=== PATIENT | female | born 1980 | race Caucasian/White ===

== ENCOUNTER 2017-11-21 10:44 | Inpatient (IN) | payer BC, OTHER ==
[~2017-11-21] VITALS: Ht 162.6 cm; Wt 81.0 kg
[2017-11-21 01:00] VITALS: BP 101/66; PULSE 102; TEMP 37.5; O2SAT 95
[2017-11-21] MEDS ORDERED: ONDANSETRON INJ 2 MG/ML 2 ML VIAL IV STA (10:59)
[2017-11-21] MEDS ORDERED: SODIUM CHLORIDE 0.9% 1000ML 1,000 ML IV STA (10:59)
[2017-11-21] MEDS ORDERED: OPTIRAY 320 IV PRN (11:15)
[2017-11-21] MEDS: MoRPHine SULFATE 4 MG/ML 1 ML CARP\\VIAL IV PRN ×3 (11:19→14:30)
[2017-11-21 11:32] LABS: ISTAT CREATININE 0.5 mg/dl (0.6-1.3); ISTAT IONIZED CALCIUM 1.02 mmol/l (1.12-1.32)
[2017-11-21 11:36] LABS: HEMATOCRIT 38.3 % (37-47); HEMOGLOBIN 13.1 g/dL (12.0-16.0); MEAN CELL VOLUME 90.8 fL (80-100); MEAN CORPUSCULAR HGB CONC 34.2 g/dl (32-36); PLATELET COUNT 334 K/uL (130-400); RED CELL DISTRIBUTION WIDTH CV 12.8 % (11.5-14.5); RED CELL DISTRIBUTION WIDTH SD 42.5 fL (36.4-46.3); WHITE BLOOD COUNT 27.21 K/uL (4.8-10.8)
[2017-11-21] MEDS ORDERED: LISD50CA PO (11:44)
[2017-11-21 12:01] LABS: BASO % 0.1 %; BASO ABS # 0.02 K/uL (0-0.2); EOS ABS # 0.01 K/uL (0-0.5); IG# 0.09 K/uL (0.00-0.02); LYMPH % 5.4 %; LYMPH ABS # 1.46 K/uL (1.2-3.4); MONO ABS # 1.36 K/uL (0.11-0.59); NEUT % 89.2 %; NEUT ABS # 24.27 K/uL (1.4-6.5)
[2017-11-21 12:05] LABS: CALCIUM 8.2 mg/dl (8.5-10.1); CREATININE 0.83 mg/dl (0.60-1.20); POTASSIUM 3.2 mmol/L (3.5-5.1); TOTAL PROTEIN 7.7 gm/dl (6.4-8.2)
--- NOTE | 2017-11-21 12:06 | EMERGENCY ROOM VISIT NOTE ---
History Report prepared by Rachael: Janell Shafer Under the Supervision of: Dr. Jaskaran Swanson D.O. First contact with patient: 10:52 Chief Complaint: ABDOMINAL PAIN Stated Complaint: SEVERE ABDOMINAL PAIN, VOMITING, CHILLS, FATIGUE Nursing Triage Summary: pt here with fever, lower abd pain, n./v no bm x 5 days. pt denies vaginal bleeding or urinary sx. History of Present Illness The patient is a 37 year old female who presents to the Emergency Room with complaints of worsening lower abdominal pain starting a few weeks ago. The patient states that she went to Urgent Care yesterday for the abdominal pain and pressure when she urinates. She states that they tested her urine and determined she did not have a UTI. She reports that she has been taking Ibuprofen, but hasn't this morning since she has not been able to keep anything down. She reports that this morning she also developed chills, feeling feverish , body aches, and fatigue. The patient complains of slight back pain and not having a bowel movement for 5 days. The patient denies burning with urination, leg swelling, rashes, hematuria, cloudy urine, vaginal discharge, vaginal bleeding, a history of diverticulitis, a history of an appendectomy, and a history of cholecystectomy. She notes that she is sexually active, but has an IUD. She states that she hasn't had a menstrual cycle in years and denies the chance of being . Source of History: patient Onset: a few weeks ago Position: abdomen (lower) Timing: worsening Modifying Factors (Relieving): ibuprofen Associated Symptoms: + chills, + back pain, + urinary symptoms (pressure when she urinates), + fatigue, No rash Note: The patient complains of feeling feverish, body aches, and not having a bowel movement in 5 days. The patient denies burning with urination, leg swelling, hematuria, cloudy urine, vaginal discharge, and vaginal bleeding. Review of Systems See HPI for pertinent positives & negatives. A total of 10 systems reviewed and were otherwise negative. Family History Patient reports no known family medical history. Social History Smoking Status: Current Every Day Smoker Marital Status: Housing Status: lives with family Occupation Status: employed Current/Historical Medications Scheduled Lisdexamfetamine Dimesylate (Vyvanse), 50 MG PO DAILY Allergies Coded Allergies: No Known Allergies (Unverified , 11/21/17) Physical Exam Vital Signs Date Time Temp Pulse Resp B/P (MAP) Pulse Ox O2 Delivery O2 Flow Rate FiO2 11/21/17 14:00 117 22 124/88 100 Room Air 11/21/17 13:00 120 22 123/86 99 Room Air 11/21/17 12:28 115 11/21/17 11:55 127 23 125/72 97 Room Air 11/21/17 11:26 126 19 136/81 96 Room Air 11/21/17 11:21 96 Room Air 11/21/17 10:48 38.7 134 18 121/86 99 Room Air Physical Exam GENERAL: Patient is awake, alert, and mildly anxious appearing, but comfortable. EYES: The conjunctivae are clear. The pupils are round and reactive. EARS, NOSE, MOUTH AND THROAT: The nose is without any evidence of any deformity. Mucous membranes are moist. Tongue is midline NECK: The neck is nontender and supple. RESPIRATORY: Normal respiratory effort is noted. There is no evidence of wheezing rhonchi or rales to auscultation. CARDIOVASCULAR: Tachycardic, but regular. No definite murmur noted. GASTROINTESTINAL: The abdomen is mildly distended and diffusely tender. Mild guarding in the right lower quadrant and suprapubic region. Bowel sounds are present in all quadrants. BACK: No midline tenderness or or step-off noted range of motion in flexion extension as well as rotation no signs of muscle spasm noted. MUSCULOSKELETAL/EXTREMITIES: There is no evidence of gross deformity. Full range of motion is noted in the hips and shoulders. SKIN: There is no obvious evidence of any rash. There are no petechiae, pallor or cyanosis noted. NEUROLOGIC: Patient is awake alert and oriented x3. Medical Decision & Procedures ER Provider Diagnostic Interpretation: Radiology results as stated below per my review and radiologist interpretation: ABD/PELVIS IV CONTRAST ONLY CLINICAL HISTORY: 37 years-old Female presenting with lower abd pain, fever. TECHNIQUE: Multidetector CT of the abdomen and pelvis was performed after the administration of intravenous contrast. IV contrast: 92 mL of Optiray 320. A dose lowering technique was used consistent with the principles of ALARA (as low as reasonably achievable). COMPARISON: None. CT DOSE (mGy.cm): The estimated cumulative dose is 816.23 mGycm. 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 Lung bases: Minimal basilar opacities, likely atelectasis. Normal heart size. No pericardial or pleural effusion. Liver: Normal morphology. Few subcentimeter hypodensities likely cysts or hamartomas. Patent hepatic vasculature. Biliary: No intrahepatic or extrahepatic biliary ductal dilatation. Normal gallbladder. Pancreas: Normal. Spleen: Normal. Adrenal glands: Normal. Kidneys and ureters: Normal. No hydronephrosis. Bladder: Normal. Pelvic organs: Intrauterine device noted in the neutral cavity. The right ovary is markedly enlarged, heterogeneous, and contains complex rim-enhancing collections. The ovary measures up to 7.8 cm in diameter. The largest intraovarian collection measures 6.3 cm. There is trace surrounding right adnexal fluid. The left ovary is also heterogeneous and prominent though not enlarged. A similar volume of free fluid is noted adjacent to the left ovary. Bowel: Along the anterior aspect of the upper rectum is a 1.1 cm rim-enhancing focus, which most likely represents an intraperitoneal abscess rather than a diverticulum. No potential diverticula noted elsewhere in the colon. Moderate stool burden in the right colon. Hyperdensity within the cecum may represent medication menstruation. The appendix is normal. No bowel obstruction. Peritoneal cavity: Focal 1.1 cm rim-enhancing fluid collection in the pelvis as mentioned above. Free fluid in the adnexa as mentioned above. No free intraperitoneal gas. Lymph nodes: No enlarged lymph nodes in the abdomen or pelvis. Vasculature: Aorta and IVC patent and normal in caliber. Abdominal wall: Normal. Musculoskeletal: Normal. IMPRESSION: 1. Findings consistent with tubo-ovarian abscess most prominently involving the right ovary. Findings also suspicious for a 1.1 cm pelvic abscess. Gynecologic consultation recommended. 2. Intrauterine device in place. The report will be called/faxed according to standard departmental protocol. Electronically signed by: Glenn Cannon M.D. 11/21/2017 1:18 PM Dictated Date/Time: 11/21/2017 1:11 PM Laboratory Results 11/21/17 11:15 Red Blood Count 4.22, Mean Corpuscular Volume 90.8, Mean Corpuscular Hemoglobin 31.0, Mean Corpuscular Hemoglobin Concent 34.2, Mean Platelet Volume 9.0, Neutrophils (%) (Auto) 89.2, Lymphocytes (%) (Auto) 5.4, Monocytes (%) (Auto) 5.0, Eosinophils (%) (Auto) 0.0, Basophils (%) (Auto) 0.1, Neutrophils # (Auto) 24.27, Lymphocytes # (Auto) 1.46, Monocytes # (Auto) 1.36, Eosinophils # (Auto) 0.01, Basophils # (Auto) 0.02 11/21/17 11:15 Test 11/21/17 11:15 11/21/17 11:19 11/21/17 13:50 White Blood Count 27.21 K/uL (4.8-10.8) Red Blood Count 4.22 M/uL (4.2-5.4) Hemoglobin 13.1 g/dL (12.0-16.0) Hematocrit 38.3 % (37-47) Mean Corpuscular Volume 90.8 fL (80-100) Mean Corpuscular Hemoglobin 31.0 pg (25-34) Mean Corpuscular Hemoglobin Concent 34.2 g/dl (32-36) Platelet Count 334 K/uL (130-400) Mean Platelet Volume 9.0 fL (7.4-10.4) Neutrophils (%) (Auto) 89.2 % Lymphocytes (%) (Auto) 5.4 % Monocytes (%) (Auto) 5.0 % Eosinophils (%) (Auto) 0.0 % Basophils (%) (Auto) 0.1 % Neutrophils # (Auto) 24.27 K/uL (1.4-6.5) Lymphocytes # (Auto) 1.46 K/uL (1.2-3.4) Monocytes # (Auto) 1.36 K/uL (0.11-0.59) Eosinophils # (Auto) 0.01 K/uL (0-0.5) Basophils # (Auto) 0.02 K/uL (0-0.2) RDW Standard Deviation 42.5 fL (36.4-46.3) RDW Coefficient of Variation 12.8 % (11.5-14.5) Immature Granulocyte % (Auto) 0.3 % Immature Granulocyte # (Auto) 0.09 K/uL (0.00-0.02) Urine Color ORANGE Urine Appearance CLEAR (CLEAR) Urine pH 5.5 (4.5-7.5) Urine Specific [place] 1.018 (1.000-1.030) Urine Protein 1+ (NEG) Urine Glucose (UA) NEG (NEG) Urine Ketones 2+ (NEG) Urine Occult Blood 1+ (NEG) Urine Nitrite POS (NEG) Urine Bilirubin NEG (NEG) Urine Urobilinogen POS (NEG) Urine Leukocyte Esterase TRACE (NEG) Urine WBC (Auto) 1-5 /hpf (0-5) Urine RBC (Auto) 0-4 /hpf (0-4) Urine Hyaline Casts (Auto) 1-5 /lpf (0-5) Urine Epithelial Cells (Auto) >30 /lpf (0-5) Urine Bacteria (Auto) 4+ (NEG) Est Creatinine Clear Calc Drug Dose 97.4 ml/min Estimated GFR () 105.9 Estimated GFR (Non- 91.4 BUN/Creatinine Ratio 8.6 (10-20) Calcium Level 8.2 mg/dl (8.5-10.1) Magnesium Level 2.1 mg/dl (1.8-2.4) Total Bilirubin 0.9 mg/dl (0.2-1) Direct Bilirubin 0.3 mg/dl (0-0.2) Aspartate Amino Transf (AST/SGOT) 10 U/L (15-37) Alanine Aminotransferase (ALT/SGPT) 18 U/L (12-78) Alkaline Phosphatase 92 U/L (45-117) Total Protein 7.7 gm/dl (6.4-8.2) Albumin 3.0 gm/dl (3.4-5.0) Lipase 52 U/L (73-393) Human Chorionic Gonadotropin, Qual NEG (NEG) Bedside Hemoglobin 12.9 g/dl (12.0-16.0) Bedside Hematocrit 38 % (37-47) Bedside Sodium 136 mEq/L (135-144) Bedside Potassium 3.0 mEq/L (3.3-5.0) Bedside Chloride 100 mEq/L (101-112) Bedside Total CO2 22 mEq/l (24-31) Anion Gap 18.0 mmol/L (16-25) Bedside Blood Urea Nitrogen 7 mg/dl (7-18) Bedside Creatinine 0.5 mg/dl (0.6-1.3) Bedside Glucose (other) 156 mg/dl (70-99) Bedside Ionized Calcium (Tony) 1.02 mmol/l (1.12-1.32) Laboratory results per my review. Medications Administered Medications (Trade) Dose Ordered Sig/Yudy Route Start Time Stop Time Status Last Admin Dose Admin Ondansetron HCl (Zofran Inj) 4 mg NOW STAT IV 11/21/17 10:59 11/21/17 11:01 DC 11/21/17 11:19 4 MG Sodium Chloride 1,000 ml @ 999 mls/hr Q1H1M STAT IV 11/21/17 10:59 11/21/17 11:59 DC 11/21/17 11:18 999 MLS/HR Morphine Sulfate (MoRPHine SULFATE INJ) 4 mg Q15M PRN IV 11/21/17 11:00 11/21/17 18:15 DC 11/21/17 14:30 4 MG Potassium Chloride 100 ml @ 100 mls/hr NOW STAT IV 11/21/17 12:20 11/21/17 13:19 DC 11/21/17 13:10 100 MLS/HR Doxycycline Hyclate 100 mg/ Dextrose 110 ml @ 50 mls/hr ONE STAT IV 11/21/17 13:25 11/21/17 15:36 DC 11/21/17 15:02 50 MLS/HR Piperacillin Sod/ Tazobactam Sod (Zosyn Iv) 4.5 gm NOW STAT IV 11/21/17 13:25 11/21/17 13:26 DC 11/21/17 14:28 4.5 GM Acetaminophen (Tylenol Tab) 650 mg Q4H PRN PO 11/21/17 14:00 12/21/17 13:59 11/21/17 15:29 650 MG ED Course 1055: The patient was evaluated in room B10. A complete history and physical examination were performed. 1059: Ordered NSS 1000 ml @ 999 mls/hr IV, Zofran Inj 4 mg IV. 1100: Ordered Morphine Sulfate 4 mg PRN IV pain. 1220: Ordered Potassium Chloride 100 ml @ 100 mls/hr IV. 1323: I reevaluated the patient and updated her on her test results at this time. 1325: Ordered Zosyn Iv 4.5 gm IV, Doxycycline Hyclate 100 mg/Dextrose 110 ml @ 50 mls/hr IV. 1327: I discussed the patient's case with Dr. Su- OB-MESH CUTTER. The patient will be evaluated for further management. 1329: I reevaluated the patient and she was doing well. I updated her on the treatment plan. The patient verbally understood and agrees to the treatment plan. Medical Decision Differential diagnosis: Etiologies such as appendicitis, diverticulitis, PUD, biliary pathology, UTI, pancreatitis, obstruction, mesenteric ischemia, aortic pathology, infections, inflammatory bowel disease, renal colic, as well as others were entertained. Nursing notes reviewed. The patient is a 37-year-old sexually active female who presented to the emergency department for lower abdominal pain. The patient has been having abdominal pain for the last few days. She thinks she may have even had this pain for approximately a week or maybe more. The patient had very significant right lower quadrant and suprapubic pain. Initially I thought her condition was consistent with appendicitis or possibly a ruptured diverticulitis. She had a very elevated white blood cell count. The patient was treated with IV fluids IV pain medicine and IV Zofran. She was also treated with IV antibiotics. I discussed patient's laboratory and radiographic studies with her. I also discussed her case with the on-call ULTRASOUND TESTER physician. They have agreed to evaluate patient in the emergency department for further management and disposition. The patient was found to have signs of tubo-ovarian abscess. She denied having any vaginal discharge but I explained her this could be related to her IUD or possibly a sexually transmitted disease. She may require further testing but also may require surgical drainage of this abscess. Medication Reconcilliation Current Medication List: was personally reviewed by me Blood Pressure Screening Patient's blood pressure: Normal blood pressure Blood pressure disposition: Did not require urgent referral Consults Time Called: 1318 Consulting Physician: Dr. Su- OB-MESH CUTTER Returned Call: 1327 I discussed the patient's case with Dr. Patton OB-MESH CUTTER. The patient will be evaluated for further management. Impression Primary Impression: Tubo-ovarian abscess Additional Impressions: Abdominal pain Fever Scribe Attestation The scribe's documentation has been prepared under my direction and personally reviewed by me in its entirety. I confirm that the note above accurately reflects all work, treatment, procedures, and medical decision making performed by me. Departure Information Dispostion Being Evaluated By Surgeon Patient Instructions My [facility] Problem Qualifiers Additional Impressions: Abdominal pain Abdominal location: right lower quadrant Qualified Codes: R10.31 - Right lower quadrant pain Fever Fever type: unspecified Qualified Codes: R50.9 - Fever, unspecified
[2017-11-21] MEDS ORDERED: POTASSIUM CHLR 10 MEQ / WTR 100 ML IV STA (12:20)
--- NOTE | 2017-11-21 13:20 | DIAGNOSTIC IMAGING REPORT ---
ABD/PELVIS IV CONTRAST ONLY CLINICAL HISTORY: 37 years-old Female presenting with lower abd pain, fever. TECHNIQUE: Multidetector CT of the abdomen and pelvis was performed after the administration of intravenous contrast. IV contrast: 92 mL of Optiray 320. A dose lowering technique was used consistent with the principles of ALARA (as low as reasonably achievable). COMPARISON: None. CT DOSE (mGy.cm): The estimated cumulative dose is 816.23 mGycm. 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 Lung bases: Minimal basilar opacities, likely atelectasis. Normal heart size. No pericardial or pleural effusion. Liver: Normal morphology. Few subcentimeter hypodensities likely cysts or hamartomas. Patent hepatic vasculature. Biliary: No intrahepatic or extrahepatic biliary ductal dilatation. Normal gallbladder. Pancreas: Normal. Spleen: Normal. Adrenal glands: Normal. Kidneys and ureters: Normal. No hydronephrosis. Bladder: Normal. Pelvic organs: Intrauterine device noted in the neutral cavity. The right ovary is markedly enlarged, heterogeneous, and contains complex rim-enhancing collections. The ovary measures up to 7.8 cm in diameter. The largest intraovarian collection measures 6.3 cm. There is trace surrounding right adnexal fluid. The left ovary is also heterogeneous and prominent though not enlarged. A similar volume of free fluid is noted adjacent to the left ovary. Bowel: Along the anterior aspect of the upper rectum is a 1.1 cm rim-enhancing focus, which most likely represents an intraperitoneal abscess rather than a diverticulum. No potential diverticula noted elsewhere in the colon. Moderate stool burden in the right colon. Hyperdensity within the cecum may represent medication menstruation. The appendix is normal. No bowel obstruction. Peritoneal cavity: Focal 1.1 cm rim-enhancing fluid collection in the pelvis as mentioned above. Free fluid in the adnexa as mentioned above. No free intraperitoneal gas. Lymph nodes: No enlarged lymph nodes in the abdomen or pelvis. Vasculature: Aorta and IVC patent and normal in caliber. Abdominal wall: Normal. Musculoskeletal: Normal. IMPRESSION: 1. Findings consistent with tubo-ovarian abscess most prominently involving the right ovary. Findings also suspicious for a 1.1 cm pelvic abscess. Gynecologic consultation recommended. 2. Intrauterine device in place. The report will be called/faxed according to standard departmental protocol. Electronically signed by: Glenn Cannon M.D. 11/21/2017 1:18 PM Dictated Date/Time: 11/21/2017 1:11 PM
[2017-11-21] MEDS ORDERED: PIPERACILLIN/TAZOBACTAM 4.5 GM/100ML D5W IV STA (13:25)
[2017-11-21] MEDS ORDERED: DOXYCYCLINE IV 100 MG in DEXTROSE 5% 100ML 100 ML IV STA (13:25)
[2017-11-21] MEDS ORDERED: ACETAMINOPHEN 325 MG TAB PO PRN (14:00)
[2017-11-21] MEDS ORDERED: GENTAMICIN CONSULT ACTIVE PRN (14:15)
--- NOTE | 2017-11-21 14:22 | History and Physical ---
History & Physical Date & Time of Service: Nov 21, 2017 at 14:06 Chief Complaint: Severe Abdominal Pain, Vomiting, Chills, Fatigue Primary Care Physician: Tiffany Oneil M.D. History of Present Illness Source: patient Patient is a female who came into the ER this morning with ongoing abdominal/pelvic pain, nausea and vomiting. She state she has had lower abdominal discomfort for the past 3 weeks but progressively became more intense over the past 2 days. The pain is across her lower abdomen and at first thought she may have a UTI or an ovarian cyst. She did got to urgent care yesterday which did a urinalysis and sent her home. She has had a low grade fever of 99 for the past 2 days. She does have a Mirena IUD which was placed in 2009. 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 She has one sexual partner for the past 4-5 years and denies any history of STD's/ PID. Her last gynecologic exam was about 2-3 years ago per patient. She does have a history of a LEEP in 2003 and has had normal paps since. She does have an elevated white count of 27.[address] in the ER showed a right sided tuboovarian abscess and pelvic abscess. No peritoneal signs or acute abdomen. Past Medical/Surgical History Medical Problems: (1) Tubo-ovarian abscess Social History Smoking Status: Current Every Day Smoker Marital Status: Occupational Status: employed Allergies Coded Allergies: No Known Allergies (Unverified , 11/21/17) Home Medications Scheduled Lisdexamfetamine Dimesylate (Vyvanse), 50 MG PO DAILY Review of Systems Constitutional: + fever, + chills Eyes: No worsening of vision, No eye pain, No redness, No discharge, No diplopia, No problem reported ENT: No hearing loss, No unusual epistaxis, No nasal symptoms, No sore throat, No tinnitus, No dental problems, No trouble swallowing, No problem reported Respiratory: No cough, No sputum, No wheezing, No shortness of breath, No dyspnea on exertion, No dyspnea at rest, No hemoptysis, No problem reported Cardiovascular: No chest pain, No orthopnea, No PND, No edema, No claudication , No palpitations, No problem reported Abdomen: + pain, + nausea, + vomiting Genitourinary - Female: + dysuria, + urinary frequency, + urinary urgency Integumentary: No rash, No itch, No new/changing skin lesions, No color change , No bleeding, No problem reported Physical Exam Vital Signs Date Time Temp Pulse Resp B/P (MAP) Pulse Ox O2 Delivery O2 Flow Rate FiO2 11/21/17 13:00 120 22 123/86 99 Room Air 11/21/17 12:28 115 11/21/17 11:55 127 23 125/72 97 Room Air 11/21/17 11:26 126 19 136/81 96 Room Air 11/21/17 11:21 96 Room Air 11/21/17 10:48 38.7 134 18 121/86 99 Room Air General Appearance: WD/WN, no apparent distress Head: normocephalic, atraumatic Respiratory/Chest: chest non-tender, lungs clear Cardiovascular: regular rate, rhythm Abdomen/GI: normal bowel sounds, soft, + tenderness Genitourinary - Female: external genitalia normal, + abnormal cervical discharge (copious amount of purulent discharge), + adnexal tenderness, + pertinent finding (+cervical motion tenderness) Extremities/Musculoskelatal: normal inspection, no calf tenderness, normal range of motion Neurologic/Psych: alert, oriented x 3 Skin: normal color, warm/dry, no rash Diagnostics Laboratory Results Results Past 24 Hours Test 11/21/17 11:15 11/21/17 11:19 Range/Units White Blood Count 27.21 4.8-10.8 K/uL Red Blood Count 4.22 4.2-5.4 M/uL Hemoglobin 13.1 12.0-16.0 g/dL Hematocrit 38.3 37-47 % Mean Corpuscular Volume 90.8 80-100 fL Mean Corpuscular Hemoglobin 31.0 25-34 pg Mean Corpuscular Hemoglobin Concent 34.2 32-36 g/dl Platelet Count 334 130-400 K/uL Mean Platelet Volume 9.0 7.4-10.4 fL Neutrophils (%) (Auto) 89.2 % Lymphocytes (%) (Auto) 5.4 % Monocytes (%) (Auto) 5.0 % Eosinophils (%) (Auto) 0.0 % Basophils (%) (Auto) 0.1 % Neutrophils # (Auto) 24.27 1.4-6.5 K/uL Lymphocytes # (Auto) 1.46 1.2-3.4 K/uL Monocytes # (Auto) 1.36 0.11-0.59 K/uL Eosinophils # (Auto) 0.01 0-0.5 K/uL Basophils # (Auto) 0.02 0-0.2 K/uL RDW Standard Deviation 42.5 36.4-46.3 fL RDW Coefficient of Variation 12.8 11.5-14.5 % Immature Granulocyte % (Auto) 0.3 % Immature Granulocyte # (Auto) 0.09 0.00-0.02 K/uL Urine Color ORANGE Urine Appearance CLEAR CLEAR Urine pH 5.5 4.5-7.5 Urine Specific [place] 1.018 1.000-1.030 Urine Protein 1+ NEG Urine Glucose (UA) NEG NEG Urine Ketones 2+ NEG Urine Occult Blood 1+ NEG Urine Nitrite POS NEG Urine Bilirubin NEG NEG Urine Urobilinogen POS NEG Urine Leukocyte Esterase TRACE NEG Urine WBC (Auto) 1-5 0-5 /hpf Urine RBC (Auto) 0-4 0-4 /hpf Urine Hyaline Casts (Auto) 1-5 0-5 /lpf Urine Epithelial Cells (Auto) >30 0-5 /lpf Urine Bacteria (Auto) 4+ NEG Sodium Level 135 136-145 mmol/L Potassium Level 3.2 3.5-5.1 mmol/L Chloride Level 104 98-107 mmol/L Carbon Dioxide Level 22 21-32 mmol/L Anion Gap 9.0 18.0 16-25 mmol/L Blood Urea Nitrogen 7 7-18 mg/dl Creatinine 0.83 0.60-1.20 mg/dl Est Creatinine Clear Calc Drug Dose 97.4 ml/min Estimated GFR () 105.9 Estimated GFR (Non- 91.4 BUN/Creatinine Ratio 8.6 10-20 Random Glucose 150 70-99 mg/dl Calcium Level 8.2 8.5-10.1 mg/dl Magnesium Level 2.1 1.8-2.4 mg/dl Total Bilirubin 0.9 0.2-1 mg/dl Direct Bilirubin 0.3 0-0.2 mg/dl Aspartate Amino Transf (AST/SGOT) 10 15-37 U/L Alanine Aminotransferase (ALT/SGPT) 18 12-78 U/L Alkaline Phosphatase 92 45-117 U/L Total Protein 7.7 6.4-8.2 gm/dl Albumin 3.0 3.4-5.0 gm/dl Lipase 52 73-393 U/L Human Chorionic Gonadotropin, Qual NEG NEG Bedside Hemoglobin 12.9 12.0-16.0 g/dl Bedside Hematocrit 38 37-47 % Bedside Sodium 136 135-144 mEq/L Bedside Potassium 3.0 3.3-5.0 mEq/L Bedside Chloride 100 101-112 mEq/L Bedside Total CO2 22 24-31 mEq/l Bedside Blood Urea Nitrogen 7 7-18 mg/dl Bedside Creatinine 0.5 0.6-1.3 mg/dl Bedside Glucose (other) 156 70-99 mg/dl Bedside Ionized Calcium (Tony) 1.02 1.12-1.32 mmol/l Diagnostic Radiology CT Abdomen/Pelvis: Pelvic organs: Intrauterine device noted in the neutral cavity. The right ovary is markedly enlarged, heterogeneous, and contains complex rim-enhancing collections. The ovary measures up to 7.8 cm in diameter. The largest intraovarian collection measures 6.3 cm. There is trace surrounding right adnexal fluid. The left ovary is also heterogeneous and prominent though not enlarged. A similar volume of free fluid is noted adjacent to the left ovary. Bowel: Along the anterior aspect of the upper rectum is a 1.1 cm rim-enhancing focus, which most likely represents an intraperitoneal abscess rather than a diverticulum. No potential diverticula noted elsewhere in the colon. Moderate stool burden in the right colon. Hyperdensity within the cecum may represent medication menstruation. The appendix is normal. No bowel obstruction. Peritoneal cavity: Focal 1.1 cm rim-enhancing fluid collection in the pelvis as mentioned above. Free fluid in the adnexa as mentioned above. No free intraperitoneal gas. Lymph nodes: No enlarged lymph nodes in the abdomen or pelvis. Vasculature: Aorta and IVC patent and normal in caliber. Abdominal wall: Normal. Musculoskeletal: Normal. IMPRESSION: 1. Findings consistent with tubo-ovarian abscess most prominently involving the right ovary. Findings also suspicious for a 1.1 cm pelvic abscess. Gynecologic consultation recommended. 2. Intrauterine device in place. Impression Assessment and Plan (1) Tubo-ovarian abscess -IUD removed and sent to pathology -Cervical cultures obtained for GC/Chlamydia/trichomonas -Will begin Clindamycin 900 mg IV q 8 hours, Ampicillin 2 grams IV q 6 hours and Gentamicin 80 mg every 8 hours -Will D/C home after 48-72 hours of IV antibiotics with oral antibiotics if patient responds well -Will obtain transvaginal US -Repeat CBC in AM. Resuscitation Status VTE Prophylaxis Will order VTE Prophylaxis: Yes Social Service Consult None Apply Note Total Time: Critical Care 30 - 74 minutes
[2017-11-21 15:15] VITALS: BP 146/89; PULSE 116; PULSE 117; TEMP 38.3; O2SAT 98; Ht 162.6 cm; Wt 81.0 kg
--- NOTE | 2017-11-21 15:58 | Pharmacy Progress Note ---
Pharmacy Abx Initial Consult Date of Service Nov 21, 2017. Pharmacy Dosing Scope Date of Consult: 11/21/17 Consultation requested by: Dr. Su Pharmacy is consulted to initiate Gentamicin IV dosing therapy, order appropriate labs and adjust drug dose/frequency. Subjective The patient is a 37 year old female admitted on Nov 21, 2017 at 14:00. Objective Height (Feet): 5 Height (Inches): 4.00 Weight (Kilograms): 81.000 Vital Signs (Past 12Hrs) Vital Signs Past 12 Hours Date Time Temp Pulse Resp B/P (MAP) Pulse Ox O2 Delivery O2 Flow Rate FiO2 11/21/17 15:15 38.3 117 24 146/89 98 Room Air 116 11/21/17 15:10 122 19 129/85 98 11/21/17 14:34 117 18 115/84 98 Room Air 11/21/17 14:00 117 22 124/88 100 Room Air 11/21/17 13:00 120 22 123/86 99 Room Air 11/21/17 12:28 115 11/21/17 11:55 127 23 125/72 97 Room Air 11/21/17 11:26 126 19 136/81 96 Room Air 11/21/17 11:21 96 Room Air 11/21/17 10:48 38.7 134 18 121/86 99 Room Air Lab Results (24Hrs) Laboratory Tests (24 Hours) Test 11/21/17 11:15 White Blood Count 27.21 K/uL (4.8-10.8) H Red Blood Count 4.22 M/uL (4.2-5.4) Hemoglobin 13.1 g/dL (12.0-16.0) Hematocrit 38.3 % (37-47) Mean Corpuscular Volume 90.8 fL (80-100) Mean Corpuscular Hemoglobin 31.0 pg (25-34) Mean Corpuscular Hemoglobin Concent 34.2 g/dl (32-36) Platelet Count 334 K/uL (130-400) Mean Platelet Volume 9.0 fL (7.4-10.4) Neutrophils (%) (Auto) 89.2 % Lymphocytes (%) (Auto) 5.4 % Monocytes (%) (Auto) 5.0 % Eosinophils (%) (Auto) 0.0 % Basophils (%) (Auto) 0.1 % Neutrophils # (Auto) 24.27 K/uL (1.4-6.5) H Lymphocytes # (Auto) 1.46 K/uL (1.2-3.4) Monocytes # (Auto) 1.36 K/uL (0.11-0.59) H Eosinophils # (Auto) 0.01 K/uL (0-0.5) Basophils # (Auto) 0.02 K/uL (0-0.2) Assessment & Plan Assessment 37 year old female presenting to the ED with ongoing abdominal/pelvic pain, N/ V. She has had the pain for over 2 weeks, but it became more intense over the past 2 days. She had a Mirena IUD that was placed in 2009, but has since been taken out once hospitalized. Her CT showed a right-sided tuboovarian abscess. She is on the recommend triple therapy: Clinda, Ampicillin, and Gent. Gentamicin dosing range is 3-5mg/kg. Plan Gentamicin for treatment of tuboovarian abscess Gentamicin * 240mg (3.7mg/kg) IV Q24H * No levels needed due to lower mg/kg dose of Gent Pharmacy will continue to follow and will adjust dose/frequency as necessary. Thank you.
[2017-11-21] MEDS: GENTAMICIN INJ 240 MG in DEXTROSE 5% 100ML 100 ML IV SCH (16:25)
[2017-11-21 16:28] VITALS: TEMP 38.4
[2017-11-21 16:58] VITALS: TEMP 38
[2017-11-21] MEDS: CLINDAMYCIN IV 900 MG in DEXTROSE 5% 100ML 100 ML IV SCH (17:55)
[2017-11-21 17:59] VITALS: TEMP 37.6
[2017-11-21] MEDS ORDERED: NURSING VERBAL MED ORDER ONE (18:15)
[2017-11-21] MEDS: OXYCODONE/ACETAMINOPHEN 5-325 TAB PO PRN ×2 (18:21→22:23)
[2017-11-21] MEDS: AMPICILLIN IV 2,000 MG in SODIUM CHLOR 0.9% AD-VAN 100ML 100 ML IV SCH ×2 (19:21→21:55)
[2017-11-21 19:25] VITALS: BP 110/72; PULSE 101; TEMP 37.1; O2SAT 99
--- NOTE | 2017-11-21 21:03 | DIAGNOSTIC IMAGING REPORT ---
ULTRASOUND OF THE PELVIS CLINICAL HISTORY: Tubo-ovarian abscess. COMPARISON STUDY: Pelvic CT dated 11/21/2017. TECHNIQUE: Real-time, grayscale, and color flow sonography of the pelvis is performed transabdominally. Images are reviewed in the transverse and longitudinal planes. The patient declined the endovaginal examination. FINDINGS: Uterus: The uterus is normal in size and echotexture, measuring 8.6 x 2.2 x 3.8 cm. Endometrium: The endometrium is normal in appearance, and the endometrial stripe is normal in thickness measuring up to 0.3 cm. There is a tiny pocket of fluid within the anterior aspect of the endometrial canal which measures up to 1.0 cm. Ovaries: The right ovary is enlarged and heterogeneous, measuring 8.6 x 6.4 x 6.2 cm. There is a cystic structure identified in the right ovary containing debris. This measures up to 6.8 cm. The right ovary appears hyperemic on color imaging. The left ovary is normal in appearance, measuring 4.1 x 2.2 x 1.9 cm. Small follicles are noted on the left. Doppler waveforms are present within both ovaries. Pelvis: There is a small volume of minimally complex free fluid in the cul-de-sac. IMPRESSION: 1. There is a large complex fluid collection involving the right ovary as detailed above. Differential considerations include a tubo-ovarian abscess or hemorrhagic cyst. Clinical correlation will be essential. 2. The intrauterine device seen on today's pelvic CT is no longer identified. There is a 1.0 cm pocket nonspecific fluid within the endometrial canal. 3. The left ovary is normal as imaged. 4. There is a small volume of minimally complex free fluid in the cul-de-sac. 5. Doppler flow is shown within both ovaries. Electronically signed by: Sina Wells M.D. 11/21/2017 9:02 PM Dictated Date/Time: 11/21/2017 8:57 PM
[2017-11-21] MEDS ORDERED: GENTAMICIN INJ 80 MG in DEXTROSE 5% 100ML 100 ML IV SCH (22:00)
[2017-11-22] VITALS (10 sets, daily range): BP systolic 98–118; BP diastolic 62–76; PULSE 91–107; TEMP 37.1–38.9; O2SAT 94–99
[2017-11-22] MEDS: CLINDAMYCIN IV 900 MG in DEXTROSE 5% 100ML 100 ML IV SCH ×4 (00:46→23:35)
[2017-11-22] MEDS: AMPICILLIN IV 2,000 MG in SODIUM CHLOR 0.9% AD-VAN 100ML 100 ML IV SCH ×4 (04:19→21:40)
[2017-11-22] MEDS: OXYCODONE/ACETAMINOPHEN 5-325 TAB PO PRN ×6 (04:19→21:40)
[2017-11-22 06:16] LABS: HEMATOCRIT 33.7 % (37-47); HEMOGLOBIN 11.3 g/dL (12.0-16.0); MEAN CELL VOLUME 91.1 fL (80-100); MEAN CORPUSCULAR HEMOGLOBIN 30.5 pg (25-34); MEAN CORPUSCULAR HGB CONC 33.5 g/dl (32-36); MEAN PLATELET VOLUME 8.8 fL (7.4-10.4); PLATELET COUNT 286 K/uL (130-400); RED CELL DISTRIBUTION WIDTH SD 43.6 fL (36.4-46.3); WHITE BLOOD COUNT 28.54 K/uL (4.8-10.8)
[2017-11-22 06:39] LABS: BASO % 0.1 %; BASO ABS # 0.02 K/uL (0-0.2); EOS % 0.1 %; EOS ABS # 0.04 K/uL (0-0.5); IG# 0.15 K/uL (0.00-0.02); LYMPH % 6.7 %; MONO % 7.8 %; MONO ABS # 2.24 K/uL (0.11-0.59); NEUT % 84.8 %; NEUT ABS # 24.19 K/uL (1.4-6.5)
[2017-11-22 06:51] LABS: ALBUMIN 2.5 gm/dl (3.4-5.0); CALCIUM 7.6 mg/dl (8.5-10.1); CREATININE 0.73 mg/dl (0.60-1.20); POTASSIUM 3.2 mmol/L (3.5-5.1); TOTAL PROTEIN 6.7 gm/dl (6.4-8.2)
[2017-11-22] MEDS: ONDANSETRON INJ 2 MG/ML 2 ML VIAL IV PRN (11:19)
[2017-11-22] MEDS ORDERED: POTASSIUM CHLR 10 MEQ / WTR 100 ML IV SCH (12:30)
[2017-11-22] MEDS: POTASSIUM CHLORIDE IV SCH (12:47)
[2017-11-22] MEDS: LACTATED RINGER S IV SCH (12:47)
--- NOTE | 2017-11-22 12:51 | Surgery Progress Note ---
Surgery Progress Note Date of Service Nov 22, 2017. Subjective Post OP Day: 1 + ambulating, + flatus, + nausea, + diet Objective Vital Signs: Date Time Temp Pulse Resp B/P (MAP) Pulse Ox O2 Delivery O2 Flow Rate FiO2 11/22/17 11:23 37.7 106 18 113/76 (88) 99 Room Air 11/22/17 08:00 37.4 91 18 101/69 (80) 96 Room Air 11/22/17 08:00 96 Room Air 11/22/17 04:30 37.6 104 18 98/64 (75) 98 Room Air 11/22/17 03:01 37.4 11/22/17 00:45 Room Air 11/22/17 00:45 37.5 102 16 101/66 (78) 95 Room Air 11/21/17 19:25 37.1 101 20 110/72 (85) 99 Room Air 11/21/17 17:59 37.6 11/21/17 16:58 38.0 11/21/17 16:28 38.4 11/21/17 15:15 38.3 117 24 146/89 (108) 98 Room Air 116 11/21/17 15:15 38.3 117 24 146/89 98 Room Air 116 11/21/17 15:15 98 Room Air 11/21/17 15:10 122 19 129/85 98 11/21/17 14:34 117 18 115/84 98 Room Air 11/21/17 14:00 117 22 124/88 100 Room Air 11/21/17 13:00 120 22 123/86 99 Room Air General Appearance: + mild distress Abdomen: non tender, non distended, soft Extremities: non-tender, normal inspection, no pedal edema, no calf tenderness Laboratory Results: Results Past 24 Hours Test 11/21/17 13:50 11/22/17 05:41 Range/Units White Blood Count 28.54 4.8-10.8 K/uL Red Blood Count 3.70 4.2-5.4 M/uL Hemoglobin 11.3 12.0-16.0 g/dL Hematocrit 33.7 37-47 % Mean Corpuscular Volume 91.1 80-100 fL Mean Corpuscular Hemoglobin 30.5 25-34 pg Mean Corpuscular Hemoglobin Concent 33.5 32-36 g/dl Platelet Count 286 130-400 K/uL Mean Platelet Volume 8.8 7.4-10.4 fL Neutrophils (%) (Auto) 84.8 % Lymphocytes (%) (Auto) 6.7 % Monocytes (%) (Auto) 7.8 % Eosinophils (%) (Auto) 0.1 % Basophils (%) (Auto) 0.1 % Neutrophils # (Auto) 24.19 1.4-6.5 K/uL Lymphocytes # (Auto) 1.90 1.2-3.4 K/uL Monocytes # (Auto) 2.24 0.11-0.59 K/uL Eosinophils # (Auto) 0.04 0-0.5 K/uL Basophils # (Auto) 0.02 0-0.2 K/uL RDW Standard Deviation 43.6 36.4-46.3 fL RDW Coefficient of Variation 13.0 11.5-14.5 % Immature Granulocyte % (Auto) 0.5 % Immature Granulocyte # (Auto) 0.15 0.00-0.02 K/uL Red Blood Cell Morphology Unremarkable Sodium Level 135 136-145 mmol/L Potassium Level 3.2 3.5-5.1 mmol/L Chloride Level 102 98-107 mmol/L Carbon Dioxide Level 28 21-32 mmol/L Anion Gap 5.0 3-11 mmol/L Blood Urea Nitrogen 4 7-18 mg/dl Creatinine 0.73 0.60-1.20 mg/dl Est Creatinine Clear Calc Drug Dose 110.8 ml/min Estimated GFR () 123.7 Estimated GFR (Non- 106.7 BUN/Creatinine Ratio 6.0 10-20 Random Glucose 118 70-99 mg/dl Calcium Level 7.6 8.5-10.1 mg/dl Total Bilirubin 0.8 0.2-1 mg/dl Aspartate Amino Transf (AST/SGOT) 9 15-37 U/L Alanine Aminotransferase (ALT/SGPT) 17 12-78 U/L Alkaline Phosphatase 82 45-117 U/L Total Protein 6.7 6.4-8.2 gm/dl Albumin 2.5 3.4-5.0 gm/dl Globulin 4.2 2.5-4.0 gm/dl Albumin/Globulin Ratio 0.6 0.9-2 Assessment & Plan clear liquids regular diet pelvic abscess continue IV antibiotics
[2017-11-22] MEDS: CALCIUM CARBONATE 500 MG CHEWABLE PO PRN ×2 (14:05→15:50)
[2017-11-22] MEDS: GENTAMICIN INJ 240 MG in DEXTROSE 5% 100ML 100 ML IV SCH (17:38)
[2017-11-22] MEDS ORDERED: CHLORPROMAZINE HCL 25 MG TAB PO PRN (17:45)
[2017-11-23] VITALS (10 sets, daily range): BP systolic 101–114; BP diastolic 60–75; PULSE 67–110; TEMP 37.1–39.3; O2SAT 93–99
[2017-11-23] MEDS: LACTATED RINGER S IV SCH (02:18)
[2017-11-23] MEDS: POTASSIUM CHLORIDE IV SCH (02:18)
[2017-11-23] MEDS: OXYCODONE/ACETAMINOPHEN 5-325 TAB PO PRN ×4 (04:16→21:00)
[2017-11-23 04:55] LABS: BASO % 0.1 %; BASO ABS # 0.02 K/uL (0-0.2); EOS % 0.5 %; EOS ABS # 0.12 K/uL (0-0.5); HEMATOCRIT 31.9 % (37-47); HEMOGLOBIN 10.8 g/dL (12.0-16.0); IG# 0.08 K/uL (0.00-0.02); LYMPH % 8.5 %; LYMPH ABS # 1.98 K/uL (1.2-3.4); MEAN CELL VOLUME 89.9 fL (80-100); MEAN CORPUSCULAR HEMOGLOBIN 30.4 pg (25-34); MEAN PLATELET VOLUME 8.7 fL (7.4-10.4); MONO % 7.2 %; MONO ABS # 1.67 K/uL (0.11-0.59); NEUT % 83.4 %; PLATELET COUNT 277 K/uL (130-400); RED CELL DISTRIBUTION WIDTH CV 12.9 % (11.5-14.5); RED CELL DISTRIBUTION WIDTH SD 42.8 fL (36.4-46.3); WHITE BLOOD COUNT 23.17 K/uL (4.8-10.8)
[2017-11-23 05:09] LABS: MEAN CORPUSCULAR HGB CONC 33.9 g/dl (32-36)
[2017-11-23] MEDS: AMPICILLIN IV 2,000 MG in SODIUM CHLOR 0.9% AD-VAN 100ML 100 ML IV SCH ×4 (05:10→21:45)
[2017-11-23 05:15] LABS: ALBUMIN 2.3 gm/dl (3.4-5.0); CALCIUM 7.7 mg/dl (8.5-10.1); CREATININE 0.74 mg/dl (0.60-1.20); POTASSIUM 3.7 mmol/L (3.5-5.1)
[2017-11-23 05:17] LABS: TOTAL PROTEIN 6.7 gm/dl (6.4-8.2)
[2017-11-23] MEDS: CLINDAMYCIN IV 900 MG in DEXTROSE 5% 100ML 100 ML IV SCH ×3 (07:50→23:35)
--- NOTE | 2017-11-23 08:53 | OB/GYN Progress Note ---
FRONT OFFICE MANAGER Progress Note Date of Service Nov 23, 2017. Subjective conversation w/ patient, physical exam Ambulation: ambulating normally Voiding: no voiding problems Diet Tolerance: Regular Diet Notes: Patient states shes feeling little better this morning. Pain still present but controlled with percocet. Would like something for constipation. Tolerating regular diet now. Ambulating without difficulty. Review of Systems Constitutional: + fever Respiratory: No cough, No sputum, No wheezing, No shortness of breath, No dyspnea on exertion, No dyspnea at rest, No hemoptysis, No problem reported Cardiac: No chest pain, No orthopnea, No PND, No edema, No claudication, No palpitations, No problem reported Abdomen: + pain Female : No see HPI, No dysuria, No urinary frequency, No hematuria, No incontinence, No abnormal vaginal bleeding, No vaginal discharge, No problem reported Objective Vital Signs Date Time Temp Pulse Resp B/P (MAP) Pulse Ox O2 Delivery O2 Flow Rate FiO2 11/23/17 07:47 98 Room Air 11/23/17 07:37 37.1 98 18 105/71 (82) 98 Room Air 11/23/17 06:20 37.3 11/23/17 05:35 37.5 11/23/17 04:10 39.3 110 18 113/72 (86) 93 Room Air 11/22/17 23:30 37.7 107 18 100/62 (75) 94 Room Air 11/22/17 23:30 94 Room Air 11/22/17 21:39 37.2 11/22/17 15:40 98 Room Air 11/22/17 15:40 37.1 94 18 118/75 (89) 98 Room Air 11/22/17 14:05 37.3 11/22/17 12:35 38.9 11/22/17 11:23 37.7 106 18 113/76 (88) 99 Room Air Physical Exam General Appearance: WELL-APPEARING Respiratory/Chest: chest non-tender, lungs clear Cardiovascular: regular rate, rhythm Abdomen: normal bowel sounds, soft, + tenderness (Right lower abdomen) Extremities: normal range of motion, non-tender, no calf tenderness Laboratory Results Last 24 Hours Test 11/23/17 04:43 White Blood Count 23.17 K/uL Red Blood Count 3.55 M/uL Hemoglobin 10.8 g/dL Hematocrit 31.9 % Mean Corpuscular Volume 89.9 fL Mean Corpuscular Hemoglobin 30.4 pg Mean Corpuscular Hemoglobin Concent 33.9 g/dl Platelet Count 277 K/uL Mean Platelet Volume 8.7 fL Neutrophils (%) (Auto) 83.4 % Lymphocytes (%) (Auto) 8.5 % Monocytes (%) (Auto) 7.2 % Eosinophils (%) (Auto) 0.5 % Basophils (%) (Auto) 0.1 % Neutrophils # (Auto) 19.30 K/uL Lymphocytes # (Auto) 1.98 K/uL Monocytes # (Auto) 1.67 K/uL Eosinophils # (Auto) 0.12 K/uL Basophils # (Auto) 0.02 K/uL RDW Standard Deviation 42.8 fL RDW Coefficient of Variation 12.9 % Immature Granulocyte % (Auto) 0.3 % Immature Granulocyte # (Auto) 0.08 K/uL Sodium Level 136 mmol/L Potassium Level 3.7 mmol/L Chloride Level 103 mmol/L Carbon Dioxide Level 26 mmol/L Anion Gap 7.0 mmol/L Blood Urea Nitrogen 3 mg/dl Creatinine 0.74 mg/dl Est Creatinine Clear Calc Drug Dose 109.3 ml/min Estimated GFR () 121.7 Estimated GFR (Non- 105.0 BUN/Creatinine Ratio 3.7 Random Glucose 120 mg/dl Calcium Level 7.7 mg/dl Total Bilirubin 0.7 mg/dl Aspartate Amino Transf (AST/SGOT) 8 U/L Alanine Aminotransferase (ALT/SGPT) 16 U/L Alkaline Phosphatase 82 U/L Total Protein 6.7 gm/dl Albumin 2.3 gm/dl Globulin 4.4 gm/dl Albumin/Globulin Ratio 0.5 Assessment and Plan (1) Tubo-ovarian abscess Status: Acute Assessment & Plan: Hospital day # 2 Tuboovarian abscess/pelvic abscess -WBC down to 23 this morning -Last febrile at 4 AM this morning -Colace 100 mg BID -Repeat CBC this evening. -Potassium up to 3.7 this morning, will stop potassium -Continue antibiotics as ordered
[2017-11-23] MEDS: DOCUSATE SODIUM 100 MG CAP PO SCH ×2 (10:14→20:59)
[2017-11-23] MEDS: IBUPROFEN 600 MG TAB PO PRN (16:25)
[2017-11-23] MEDS: GENTAMICIN INJ 240 MG in DEXTROSE 5% 100ML 100 ML IV SCH (17:39)
[2017-11-23 19:33] LABS: HEMATOCRIT 32.7 % (37-47); MEAN CELL VOLUME 90.8 fL (80-100); MEAN CORPUSCULAR HEMOGLOBIN 30.6 pg (25-34); MEAN CORPUSCULAR HGB CONC 33.6 g/dl (32-36); PLATELET COUNT 322 K/uL (130-400); RED CELL DISTRIBUTION WIDTH SD 43.1 fL (36.4-46.3); WHITE BLOOD COUNT 22.62 K/uL (4.8-10.8)
[2017-11-23] MEDS: CALCIUM CARBONATE 500 MG CHEWABLE PO PRN (23:43)
[2017-11-24] VITALS (14 sets, daily range): BP systolic 103–111; BP diastolic 69–75; PULSE 92–122; TEMP 36.3–38.5; O2SAT 93–99
[2017-11-24] MEDS: OXYCODONE/ACETAMINOPHEN 5-325 TAB PO PRN ×4 (04:06→22:25)
[2017-11-24] MEDS: AMPICILLIN IV 2,000 MG in SODIUM CHLOR 0.9% AD-VAN 100ML 100 ML IV SCH ×4 (04:07→22:13)
[2017-11-24] MEDS: ONDANSETRON INJ 2 MG/ML 2 ML VIAL IV PRN (04:31)
[2017-11-24] MEDS: IBUPROFEN 600 MG TAB PO PRN ×3 (05:25→16:00)
[2017-11-24 06:37] LABS: HEMATOCRIT 33.1 % (37-47); HEMOGLOBIN 11.4 g/dL (12.0-16.0); MEAN CELL VOLUME 90.2 fL (80-100); MEAN CORPUSCULAR HEMOGLOBIN 31.1 pg (25-34); MEAN CORPUSCULAR HGB CONC 34.4 g/dl (32-36); MEAN PLATELET VOLUME 8.7 fL (7.4-10.4); PLATELET COUNT 294 K/uL (130-400); RED CELL DISTRIBUTION WIDTH CV 12.9 % (11.5-14.5); RED CELL DISTRIBUTION WIDTH SD 42.8 fL (36.4-46.3); WHITE BLOOD COUNT 19.82 K/uL (4.8-10.8)
[2017-11-24] MEDS: CLINDAMYCIN IV 900 MG in DEXTROSE 5% 100ML 100 ML IV SCH ×2 (08:03→16:00)
[2017-11-24] MEDS: DOCUSATE SODIUM 100 MG CAP PO SCH ×2 (08:04→21:23)
--- NOTE | 2017-11-24 11:45 | Progress Note ---
Progress Note Date of Service Nov 24, 2017. Progress Note S; pt denies headache, SOB, chills or fever amitted on 11/21 villanueva TOA. started Antibx x 3 days pt continues to spike fever and her WBC continues to be elevated pelvic sono and Ct show 7cm rt adnexal mass O; febrile Ht; s1S2 R/r/r Lung : CTA biilat Abd; tender to touch, no guarding Ext; No C/c/e A/p TOA antibx X 3 days pt continues to be afebrile discussed surgery with pt diagnostic laparoscopy, RSO, Possible laparotomy possible cystoscopy discussed risk of surgery vrs expectant managment pt wishes to proceed with surgery consent is signed
--- NOTE | 2017-11-24 14:55 | History & Physical Bridge Note ---
H&P Re-Evaluation Bridge Note: I have examined the patient, reviewed the History & Physical and in the interval since the performance of the History & Physical I have noted the following changes of clinical significance: No changes noted
[2017-11-24] MEDS ORDERED: PROPOFOL IV EMULSION 10 MG/ML 20 ML VIAL ONE (15:15)
[2017-11-24] MEDS ORDERED: GLYCOPYRROLATE INJ 0.2 MG/ML VIAL ONE (15:15)
[2017-11-24] MEDS ORDERED: ONDANSETRON INJ 2 MG/ML 2 ML VIAL ONE (15:15)
[2017-11-24] MEDS ORDERED: NEOSTIGMINE METHYLSULFATE 5 MG/5 ML SYR ONE (15:15)
[2017-11-24] MEDS ORDERED: MIDAZOLAM HCL 1 MG/ML 2ML VIAL ONE (15:15)
[2017-11-24] MEDS ORDERED: DEXAMETHASONE SOD INJ 4 MG/ML VIAL ONE (15:15)
[2017-11-24] MEDS ORDERED: LIDOCAINE HCL 2% 2 ML VIAL (20MG/ML) ONE (15:15)
[2017-11-24] MEDS ORDERED: FENTANYL CITRATE INJ 50 MCG/1 ML 2 ML VIAL ONE ×2 (15:16→16:13)
[2017-11-24] MEDS ORDERED: BUPIVACAINE/EPINEPHRINE 0.5% MPF 1:200,000 30 ML VIAL ONE (15:26)
[2017-11-24] MEDS ORDERED: LABETALOL HCL IV 5 MG/ML 20ML IV PRN (16:45)
[2017-11-24] MEDS ORDERED: ATROPINE SULFATE 0.1 MG/ML 5ML SYR IV PRN (16:45)
[2017-11-24] MEDS ORDERED: KETOROLAC TROMETHAMINE 30 MG/ML VIAL IV. PRN (16:45)
[2017-11-24] MEDS ORDERED: ONDANSETRON INJ 2 MG/ML 2 ML VIAL IV PRN ×2 (16:45→19:00)
[2017-11-24] MEDS ORDERED: ESMOLOL HCL 10 MG/ML 10 ML VIAL ONE (16:58)
[2017-11-24] MEDS: GENTAMICIN INJ 240 MG in DEXTROSE 5% 100ML 100 ML IV SCH (17:00)
[2017-11-24] MEDS ORDERED: ROCURONIUM BROMIDE 10 MG/ML 5 ML VIAL ONE (17:12)
[2017-11-24] MEDS ORDERED: MoRPHine SULFATE PF 1 MG/ML 10 ML AMP/VIAL ONE (17:25)
[2017-11-24] MEDS ORDERED: FLOSEAL HEMOSTATIC MATRIX 10ML TOP ONE (18:10)
[2017-11-24] MEDS ORDERED: LACTATED RINGER'S 1000ML 1,000 ML IV SCH (18:57)
--- NOTE | 2017-11-24 18:57 | [facility] Operative Report ---
Operative Report Operative Date Nov 24, 2017. Pre-Operative Diagnosis Right tubo-ovarian abscess Post-Operative Diagnosis Same plus adhesions Procedure(s) Performed Operative laparoscopic, right salpingo-oohorectomy, lysis of adhesions Surgeon Dr Christensen Trouble Operator Surgeon(s) DR Neely Estimated Blood Loss 50ml Specimens a. right tube,ovary, and abscess Drains None Anesthesia Type General Complication(s) none Disposition Recovery Room / PACU I attest to the content of the Intraoperative Record and any orders documented therein. Any exceptions are noted below.
[2017-11-24] MEDS ORDERED: IBUPROFEN 600 MG TAB PO PRN (19:00)
[2017-11-24] MEDS ORDERED: PROMETHAZINE HCL INJ 12.5 MG in SODIUM CHLORIDE 0.9% 50ML 50 ML IV PRN (19:00)
[2017-11-24] MEDS ORDERED: PROMETHAZINE HCL INJ 25 MG in SODIUM CHLORIDE 0.9% 50ML 50 ML IV PRN (19:00)
[2017-11-24] MEDS ORDERED: OXYCODONE/ACETAMINOPHEN 5-325 TAB PO PRN ×2 (19:00)
[2017-11-24] MEDS ORDERED: METOPROLOL TARTRATE 1 MG/ML VIAL IV PRN (19:15)
[2017-11-24] MEDS: HYDROmorphone INJ 0.5 MG/0.5 ML SYR IV PRN ×4 (19:15→19:38)
[2017-11-24] MEDS ORDERED: METOPROLOL TARTRATE 1 MG/ML VIAL ONE (19:32)
--- NOTE | 2017-11-24 19:48 | Anesthesiology Progress Note ---
Anesthesia Post Op Note Date & Time Nov 24, 2017 at 19:47 Vital Signs Pain Intensity: 4 Vital Signs Past 12 Hours Date Time Temp Pulse Resp B/P (MAP) Pulse Ox O2 Delivery O2 Flow Rate FiO2 11/24/17 19:40 36.5 114 16 114/70 97 Room Air 11/24/17 19:34 120 118/74 11/24/17 19:30 117 16 118/74 100 Nasal Cannula 2 11/24/17 19:20 113 16 125/76 100 Nasal Cannula 2 11/24/17 19:10 115 16 119/76 100 Nasal Cannula 2 11/24/17 19:00 109 16 114/74 100 Nasal Cannula 2 11/24/17 18:50 36. 117 16 116/75 100 Nasal Cannula 2 11/24/17 13:43 37.4 11/24/17 11:41 36.9 94 20 104/73 (83) 98 Room Air Notes Mental Status: alert / awake / arousable, participated in evaluation Pt Amnestic to Procedure: Yes Nausea / Vomiting: adequately controlled Pain: adequately controlled Airway Patency, RR, SpO2: stable & adequate BP & HR: stable & adequate Hydration State: stable & adequate Anesthetic Complications: no major complications apparent
[2017-11-24 20:25] LABS: HEMATOCRIT 32.1 % (37-47); HEMOGLOBIN 10.8 g/dL (12.0-16.0)
[2017-11-25] VITALS (8 sets, daily range): BP systolic 100–119; BP diastolic 65–79; PULSE 94–114; TEMP 37.1–37.3; O2SAT 95–100
[2017-11-25] MEDS: CLINDAMYCIN IV 900 MG in DEXTROSE 5% 100ML 100 ML IV SCH ×4 (00:29→23:52)
[2017-11-25] MEDS ORDERED: GENTAMICIN INJ 240 MG in DEXTROSE 5% 100ML 100 ML IV ONE (02:00)
[2017-11-25] MEDS: IBUPROFEN 600 MG TAB PO PRN ×3 (02:22→19:56)
[2017-11-25] MEDS: OXYCODONE/ACETAMINOPHEN 5-325 TAB PO PRN ×4 (03:47→19:57)
[2017-11-25] MEDS: AMPICILLIN IV 2,000 MG in SODIUM CHLOR 0.9% AD-VAN 100ML 100 ML IV SCH ×4 (04:46→21:56)
[2017-11-25] MEDS: DOCUSATE SODIUM 100 MG CAP PO SCH ×2 (07:54→20:42)
[2017-11-25 07:59] LABS: MEAN CORPUSCULAR HGB CONC 34.5 g/dl (32-36); MEAN PLATELET VOLUME 8.5 fL (7.4-10.4); PLATELET COUNT 360 K/uL (130-400)
[2017-11-25 08:09] LABS: CALCIUM 7.9 mg/dl (8.5-10.1); CREATININE 0.77 mg/dl (0.60-1.20); POTASSIUM 3.7 mmol/L (3.5-5.1)
[2017-11-25 08:14] LABS: HEMATOCRIT 30.7 % (37-47); HEMOGLOBIN 10.6 g/dL (12.0-16.0); MEAN CELL VOLUME 89.5 fL (80-100); MEAN CORPUSCULAR HEMOGLOBIN 30.9 pg (25-34); RED CELL DISTRIBUTION WIDTH CV 13.3 % (11.5-14.5); RED CELL DISTRIBUTION WIDTH SD 44.1 fL (36.4-46.3); WHITE BLOOD COUNT 35.93 K/uL (4.8-10.8)
[2017-11-25 09:09] LABS: BASO % 0.1 %; BASO ABS # 0.03 K/uL (0-0.2); IG# 0.23 K/uL (0.00-0.02); LYMPH % 3.8 %; LYMPH ABS # 1.35 K/uL (1.2-3.4); MONO ABS # 1.42 K/uL (0.11-0.59); NEUT % 91.5 %
--- NOTE | 2017-11-25 10:57 | Surgery Progress Note ---
Surgery Progress Note Date of Service Nov 25, 2017. Subjective Post OP Day: 1 + feeling well, + ambulating, + bowel movement, + flatus, + pain controlled Objective Vital Signs: Date Time Temp Pulse Resp B/P (MAP) Pulse Ox O2 Delivery O2 Flow Rate FiO2 11/25/17 08:00 96 Room Air 11/25/17 08:00 37.2 103 20 105/66 (79) 95 Room Air 11/25/17 03:50 37.2 94 18 106/68 (81) 100 Room Air 11/24/17 23:00 36.5 117 20 108/72 (84) 96 Room Air 11/24/17 23:00 96 Room Air 11/24/17 22:00 37.3 111 20 105/69 (81) 93 Room Air 11/24/17 21:25 36.3 116 20 104/70 (81) 95 Room Air 11/24/17 20:55 37.4 120 20 110/74 (86) 98 Room Air 11/24/17 20:40 36.6 120 18 108/72 (84) 97 Room Air 11/24/17 20:20 36.7 117 18 109/74 (86) 99 Room Air 11/24/17 20:05 97 Room Air 11/24/17 20:05 97 Room Air 11/24/17 20:05 36.9 122 20 111/75 (87) 97 Room Air 11/24/17 19:40 36.5 114 16 114/70 97 Room Air 11/24/17 19:34 120 118/74 11/24/17 19:30 117 16 118/74 100 Nasal Cannula 2 11/24/17 19:20 113 16 125/76 100 Nasal Cannula 2 11/24/17 19:10 115 16 119/76 100 Nasal Cannula 2 11/24/17 19:00 109 16 114/74 100 Nasal Cannula 2 11/24/17 18:50 36. 117 16 116/75 100 Nasal Cannula 2 11/24/17 13:43 37.4 11/24/17 11:41 36.9 94 20 104/73 (83) 98 Room Air General Appearance: no apparent distress Abdomen: non tender, non distended, soft Incision(s): clean, dry, intact Extremities: non-tender, normal inspection, no pedal edema, no calf tenderness Laboratory Results: Results Past 24 Hours Test 11/24/17 20:18 11/25/17 07:21 Range/Units Hemoglobin 10.8 10.6 12.0-16.0 g/dL Hematocrit 32.1 30.7 37-47 % White Blood Count 35.93 4.8-10.8 K/uL Red Blood Count 3.43 4.2-5.4 M/uL Mean Corpuscular Volume 89.5 80-100 fL Mean Corpuscular Hemoglobin 30.9 25-34 pg Mean Corpuscular Hemoglobin Concent 34.5 32-36 g/dl Platelet Count 360 130-400 K/uL Mean Platelet Volume 8.5 7.4-10.4 fL Neutrophils (%) (Auto) 91.5 % Lymphocytes (%) (Auto) 3.8 % Monocytes (%) (Auto) 4.0 % Eosinophils (%) (Auto) 0.0 % Basophils (%) (Auto) 0.1 % Neutrophils # (Auto) 32.90 1.4-6.5 K/uL Lymphocytes # (Auto) 1.35 1.2-3.4 K/uL Monocytes # (Auto) 1.42 0.11-0.59 K/uL Eosinophils # (Auto) 0.00 0-0.5 K/uL Basophils # (Auto) 0.03 0-0.2 K/uL RDW Standard Deviation 44.1 36.4-46.3 fL RDW Coefficient of Variation 13.3 11.5-14.5 % Immature Granulocyte % (Auto) 0.6 % Immature Granulocyte # (Auto) 0.23 0.00-0.02 K/uL Sodium Level 136 136-145 mmol/L Potassium Level 3.7 3.5-5.1 mmol/L Chloride Level 100 98-107 mmol/L Carbon Dioxide Level 26 21-32 mmol/L Anion Gap 10.0 3-11 mmol/L Blood Urea Nitrogen 4 7-18 mg/dl Creatinine 0.77 0.60-1.20 mg/dl Est Creatinine Clear Calc Drug Dose 105.0 ml/min Estimated GFR () 115.9 Estimated GFR (Non- 100.0 BUN/Creatinine Ratio 5.7 10-20 Random Glucose 170 70-99 mg/dl Calcium Level 7.9 8.5-10.1 mg/dl Assessment & Plan pelvic abscess continue IV antibiotics regular diet pelvic abscess continue IV antibiotics repeat CBC tonight and in AM
[2017-11-25 18:32] LABS: HEMATOCRIT 29.5 % (37-47); HEMOGLOBIN 9.9 g/dL (12.0-16.0); MEAN CELL VOLUME 90.2 fL (80-100); MEAN CORPUSCULAR HEMOGLOBIN 30.3 pg (25-34); MEAN CORPUSCULAR HGB CONC 33.6 g/dl (32-36); MEAN PLATELET VOLUME 8.5 fL (7.4-10.4); PLATELET COUNT 362 K/uL (130-400); RED CELL DISTRIBUTION WIDTH CV 13.2 % (11.5-14.5); RED CELL DISTRIBUTION WIDTH SD 43.8 fL (36.4-46.3); WHITE BLOOD COUNT 31.35 K/uL (4.8-10.8)
[2017-11-25 19:03] LABS: BASO % 0.1 %; BASO ABS # 0.04 K/uL (0-0.2); EOS % 0.5 %; EOS ABS # 0.16 K/uL (0-0.5); IG# 0.22 K/uL (0.00-0.02); LYMPH % 6.8 %; LYMPH ABS # 2.14 K/uL (1.2-3.4); MONO % 2.5 %; MONO ABS # 0.78 K/uL (0.11-0.59); NEUT % 89.4 %; NEUT ABS # 28.01 K/uL (1.4-6.5)
[2017-11-26] MEDS: CALCIUM CARBONATE 500 MG CHEWABLE PO PRN ×2 (00:09→11:48)
[2017-11-26] MEDS: OXYCODONE/ACETAMINOPHEN 5-325 TAB PO PRN ×5 (00:10→21:56)
[2017-11-26] MEDS: GENTAMICIN INJ 240 MG in DEXTROSE 5% 100ML 100 ML IV SCH (02:16)
[2017-11-26 03:53] VITALS: BP 103/67; PULSE 97; TEMP 36.4; O2SAT 95
[2017-11-26] MEDS: AMPICILLIN IV 2,000 MG in SODIUM CHLOR 0.9% AD-VAN 100ML 100 ML IV SCH ×2 (03:57→09:36)
[2017-11-26 04:42] LABS: HEMOGLOBIN 9.8 g/dL (12.0-16.0); MEAN CELL VOLUME 90.3 fL (80-100); MEAN CORPUSCULAR HEMOGLOBIN 30.5 pg (25-34); MEAN CORPUSCULAR HGB CONC 33.8 g/dl (32-36); MEAN PLATELET VOLUME 8.4 fL (7.4-10.4); PLATELET COUNT 370 K/uL (130-400); RED CELL DISTRIBUTION WIDTH CV 13.4 % (11.5-14.5); RED CELL DISTRIBUTION WIDTH SD 44.5 fL (36.4-46.3); WHITE BLOOD COUNT 30.97 K/uL (4.8-10.8)
[2017-11-26] MEDS: IBUPROFEN 600 MG TAB PO PRN ×3 (04:55→17:26)
[2017-11-26 05:19] LABS: BASO % 0.2 %; BASO ABS # 0.05 K/uL (0-0.2); EOS % 0.9 %; EOS ABS # 0.28 K/uL (0-0.5); IG# 0.27 K/uL (0.00-0.02); LYMPH % 7.5 %; LYMPH ABS # 2.32 K/uL (1.2-3.4); MONO % 3.9 %; MONO ABS # 1.21 K/uL (0.11-0.59); NEUT % 86.6 %; NEUT ABS # 26.84 K/uL (1.4-6.5)
[2017-11-26] MEDS: DOCUSATE SODIUM 100 MG CAP PO SCH ×2 (07:59→20:49)
[2017-11-26] MEDS: CLINDAMYCIN IV 900 MG in DEXTROSE 5% 100ML 100 ML IV SCH (07:59)
[2017-11-26 08:00] VITALS: BP 101/69; PULSE 106; TEMP 36.5; O2SAT 95; O2SAT 96
--- NOTE | 2017-11-26 08:59 | Surgery Progress Note ---
Surgery Progress Note Date of Service Nov 26, 2017. Subjective Post OP Day: 2 + feeling well, + ambulating, + flatus, + pain controlled, + diet Objective Vital Signs: Date Time Temp Pulse Resp B/P (MAP) Pulse Ox O2 Delivery O2 Flow Rate FiO2 11/26/17 08:00 95 Room Air 11/26/17 08:00 36.5 106 18 101/69 (80) 96 Room Air 11/26/17 03:53 36.4 97 18 103/67 (79) 95 Room Air 11/25/17 23:00 98 Room Air 11/25/17 22:48 37.3 107 20 110/71 (84) 99 Room Air 11/25/17 19:41 98 Room Air 11/25/17 19:35 37.3 111 18 100/65 (77) 98 Room Air 11/25/17 16:00 99 Room Air 11/25/17 16:00 37.1 114 18 100/66 (77) 99 Room Air 11/25/17 11:52 37.2 109 18 119/79 (92) 96 Room Air General Appearance: no apparent distress Abdomen: non tender, non distended, soft Incision(s): clean, dry, intact Extremities: non-tender, normal inspection, no pedal edema, no calf tenderness Laboratory Results: Results Past 24 Hours Test 11/25/17 18:01 11/26/17 04:23 Range/Units White Blood Count 31.35 30.97 4.8-10.8 K/uL Red Blood Count 3.27 3.21 4.2-5.4 M/uL Hemoglobin 9.9 9.8 12.0-16.0 g/dL Hematocrit 29.5 29.0 37-47 % Mean Corpuscular Volume 90.2 90.3 80-100 fL Mean Corpuscular Hemoglobin 30.3 30.5 25-34 pg Mean Corpuscular Hemoglobin Concent 33.6 33.8 32-36 g/dl Platelet Count 362 370 130-400 K/uL Mean Platelet Volume 8.5 8.4 7.4-10.4 fL Neutrophils (%) (Auto) 89.4 86.6 % Lymphocytes (%) (Auto) 6.8 7.5 % Monocytes (%) (Auto) 2.5 3.9 % Eosinophils (%) (Auto) 0.5 0.9 % Basophils (%) (Auto) 0.1 0.2 % Neutrophils # (Auto) 28.01 26.84 1.4-6.5 K/uL Lymphocytes # (Auto) 2.14 2.32 1.2-3.4 K/uL Monocytes # (Auto) 0.78 1.21 0.11-0.59 K/uL Eosinophils # (Auto) 0.16 0.28 0-0.5 K/uL Basophils # (Auto) 0.04 0.05 0-0.2 K/uL RDW Standard Deviation 43.8 44.5 36.4-46.3 fL RDW Coefficient of Variation 13.2 13.4 11.5-14.5 % Immature Granulocyte % (Auto) 0.7 0.9 % Immature Granulocyte # (Auto) 0.22 0.27 0.00-0.02 K/uL Red Blood Cell Morphology Unremarkable Assessment & Plan pelvic abscess s/p Drainage and RSO of abscess ID consult regular diet pelvic abscess continue IV antibiotics repeat CBC tonight and in AM
[2017-11-26] MEDS: ERTAPENEM IV 1 GM in SODIUM CHLOR 0.9% AD-VAN 50ML 50 ML IV SCH (14:45)
[2017-11-26 15:15] VITALS: BP 114/67; PULSE 109; TEMP 37.4; O2SAT 97
[2017-11-26] MEDS: ONDANSETRON INJ 2 MG/ML 2 ML VIAL IV PRN (15:28)
--- NOTE | 2017-11-26 15:59 | Medical Consult ---
Consultation Date of Consultation: Nov 26, 2017. Attending Physician: Abhishek Su DO Reason for Consultation: Persistent WBC elevation History of Present Illness 35-year-old female in prior good health into the hospital with 3 weeks of progressively worsening lower quadrant abdominal pain associated with low-grade fever and chills, constipation, and fatigue. She eventually went to urgent care center where she was or not to have urinary tract infection, and sent home , of symptoms worsened with pain rated 10 out 10 intensity and so came to the emergency department. She was found to have leukocytosis of 20,000, and underwent CT scan, read by me, which showed evidence of tubo-ovarian abscess. She has now undergone surgical drainage and right salpingo-oophorectomy. Blood cultures have been negative to date, operative cultures not obtained. White count increased to 35,000 postoperatively, now slightly improved at 30,000 patient has been afebrile, feeling somewhat better but still with significant abdominal pain, currently 5/10 in intensity. Has past minimal amount of gas, no bowel movement as yet. No urinary complaints. Studies for STDs are negative. Past Medical/Surgical History Medical Problems: (1) Abdominal pain Status: Acute (2) Fever Status: Acute (3) Tubo-ovarian abscess Status: Acute Family History Noncontributory Social History Smoking Status: Current Every Day Smoker Marital Status: Housing Status: lives with family Occupation Status: employed Allergies Coded Allergies: No Known Allergies (Unverified , 11/23/17) Current Inpatient Medications Current Inpatient Medications Medications (Trade) Dose Ordered Sig/Yudy Route Start Time Stop Time Status Last Admin Dose Admin Acetaminophen (Tylenol Tab) 650 mg Q4H PRN PO 11/21/17 14:00 12/21/17 13:59 11/21/17 15:29 650 MG Ondansetron HCl (Zofran Inj) 4 mg Q6H PRN IV 11/21/17 14:00 12/21/17 13:59 11/26/17 15:28 4 MG Oxycodone/ Acetaminophen (Percocet 5-325mg Tab) 1 tab Q4H PRN PO 11/21/17 18:15 12/05/17 18:14 11/25/17 13:49 1 TAB Oxycodone/ Acetaminophen (Percocet 5-325mg Tab) 2 tab Q4H PRN PO 11/22/17 13:00 12/06/17 12:59 11/26/17 12:18 2 TAB Calcium Carbonate (Tums Chew Tab) 500 mg Q2HWA PRN PO 11/22/17 13:00 12/22/17 12:59 11/26/17 11:48 500 MG Chlorpromazine HCl (Thorazine Tab) 25 mg Q4 PRN PO 11/22/17 17:45 12/22/17 17:44 11/22/17 19:15 25 MG Docusate Sodium (coLACE CAP) 100 mg BID PO 11/23/17 09:00 12/23/17 08:59 11/26/17 07:59 100 MG Ibuprofen (Motrin Tab) 600 mg QID PRN PO 11/23/17 16:15 12/23/17 16:14 11/26/17 12:17 600 MG Lactated Ringer's 1,000 ml @ 125 mls/hr Q8H IV 11/24/17 18:57 12/24/17 18:56 Promethazine HCl 12.5 mg/Sodium Chloride 50.5 ml @ 200 mls/hr Q4H PRN IV 11/24/17 19:00 12/24/17 18:59 Promethazine HCl 25 mg/Sodium Chloride 51 ml @ 200 mls/hr Q4H PRN IV 11/24/17 19:00 12/24/17 18:59 Ertapenem 1 gm/ Sodium Chloride 50 ml @ 120 mls/hr DAILY@1400 IV 11/26/17 15:00 12/06/17 13:59 11/26/17 14:45 120 MLS/HR Review of Systems Constitutional: + weakness, + fatigue, No fever Eyes: No problem reported ENT: No problem reported Respiratory: No problem reported Cardiovascular: No problem reported Abdomen: + pain, + nausea Musculoskeletal: No problem reported Genitourinary - Female: No problem reported Neurologic: No problem reported Psychiatric: No problem reported Endocrine: No problem reported Hematologic / Lymphatic: No problem reported Integumentary: No problem reported Allergic / Immunologic: No problem reported Physical Exam Date Time Temp Pulse Resp B/P (MAP) Pulse Ox O2 Delivery O2 Flow Rate FiO2 11/26/17 15:15 37.4 109 20 114/67 (83) 97 Room Air 11/26/17 15:15 97 Room Air 11/26/17 08:00 95 Room Air 11/26/17 08:00 36.5 106 18 101/69 (80) 96 Room Air 11/26/17 03:53 36.4 97 18 103/67 (79) 95 Room Air 11/25/17 23:00 98 Room Air 11/25/17 22:48 37.3 107 20 110/71 (84) 99 Room Air 11/25/17 19:41 98 Room Air 11/25/17 19:35 37.3 111 18 100/65 (77) 98 Room Air 11/25/17 16:00 99 Room Air 11/25/17 16:00 37.1 114 18 100/66 (77) 99 Room Air General Appearance: WD/WN, no apparent distress Head: normocephalic, atraumatic Eyes: normal inspection, EOMI, sclerae normal ENT: normal ENT inspection, hearing grossly normal, pharynx normal Neck: supple, no adenopathy, thyroid normal, trachea midline Respiratory/Chest: chest non-tender, lungs clear, normal breath sounds, no respiratory distress Cardiovascular: regular rate, rhythm, no gallop, no murmur Abdomen/GI: normal bowel sounds, soft, no organomegaly, + tenderness Back: normal inspection, no CVA tenderness Extremities/Musculoskelatal: no calf tenderness, normal capillary refill, non- tender Neurologic/Psych: alert, normal mood/affect, oriented x 3 Skin: normal color, warm/dry, no rash, + pertinent finding (Surgical incision clean) Lymphatic: no adenopathy Laboratory Results Date/Time Source Procedure Growth Status 11/26/17 10:35 Urine , Clean Catch Urine Culture Pending Received Last 24 Hours Test 11/25/17 18:01 11/26/17 04:23 11/26/17 10:35 White Blood Count 31.35 K/uL 30.97 K/uL Red Blood Count 3.27 M/uL 3.21 M/uL Hemoglobin 9.9 g/dL 9.8 g/dL Hematocrit 29.5 % 29.0 % Mean Corpuscular Volume 90.2 fL 90.3 fL Mean Corpuscular Hemoglobin 30.3 pg 30.5 pg Mean Corpuscular Hemoglobin Concent 33.6 g/dl 33.8 g/dl Platelet Count 362 K/uL 370 K/uL Mean Platelet Volume 8.5 fL 8.4 fL Neutrophils (%) (Auto) 89.4 % 86.6 % Lymphocytes (%) (Auto) 6.8 % 7.5 % Monocytes (%) (Auto) 2.5 % 3.9 % Eosinophils (%) (Auto) 0.5 % 0.9 % Basophils (%) (Auto) 0.1 % 0.2 % Neutrophils # (Auto) 28.01 K/uL 26.84 K/uL Lymphocytes # (Auto) 2.14 K/uL 2.32 K/uL Monocytes # (Auto) 0.78 K/uL 1.21 K/uL Eosinophils # (Auto) 0.16 K/uL 0.28 K/uL Basophils # (Auto) 0.04 K/uL 0.05 K/uL RDW Standard Deviation 43.8 fL 44.5 fL RDW Coefficient of Variation 13.2 % 13.4 % Immature Granulocyte % (Auto) 0.7 % 0.9 % Immature Granulocyte # (Auto) 0.22 K/uL 0.27 K/uL Red Blood Cell Morphology Unremarkable Urine Color YELLOW Urine Appearance CLEAR Urine pH 7.5 Urine Specific [place] 1.015 Urine Protein NEG Urine Glucose (UA) NEG Urine Ketones NEG Urine Occult Blood TRACE Urine Nitrite NEG Urine Bilirubin NEG Urine Urobilinogen NEG Urine Leukocyte Esterase NEG Urine WBC (Auto) 5-10 /hpf Urine RBC (Auto) 0-4 /hpf Urine Hyaline Casts (Auto) 1-5 /lpf Urine Epithelial Cells (Auto) >30 /lpf Urine Bacteria (Auto) 1+ Urine Renal Epithelial Cells /lpf Urine Pathogenic Casts 0-3 GRANULAR CASTS /lpf ABD/PELVIS IV CONTRAST ONLY CLINICAL HISTORY: 37 years-old Female presenting with lower abd pain, fever. TECHNIQUE: Multidetector CT of the abdomen and pelvis was performed after the administration of intravenous contrast. IV contrast: 92 mL of Optiray 320. A dose lowering technique was used consistent with the principles of ALARA (as low as reasonably achievable). COMPARISON: None. CT DOSE (mGy.cm): The estimated cumulative dose is 816.23 mGycm. FINDINGS: Library Assistant topogram: Intrauterine device noted. Lung bases: Minimal basilar opacities, likely atelectasis. Normal heart size. No pericardial or pleural effusion. Liver: Normal morphology. Few subcentimeter hypodensities likely cysts or hamartomas. Patent hepatic vasculature. Biliary: No intrahepatic or extrahepatic biliary ductal dilatation. Normal gallbladder. Pancreas: Normal. Spleen: Normal. Adrenal glands: Normal. Kidneys and ureters: Normal. No hydronephrosis. Bladder: Normal. Pelvic organs: Intrauterine device noted in the neutral cavity. The right ovary is markedly enlarged, heterogeneous, and contains complex rim-enhancing collections. The ovary measures up to 7.8 cm in diameter. The largest intraovarian collection measures 6.3 cm. There is trace surrounding right adnexal fluid. The left ovary is also heterogeneous and prominent though not enlarged. A similar volume of free fluid is noted adjacent to the left ovary. Bowel: Along the anterior aspect of the upper rectum is a 1.1 cm rim-enhancing focus, which most likely represents an intraperitoneal abscess rather than a diverticulum. No potential diverticula noted elsewhere in the colon. Moderate stool burden in the right colon. Hyperdensity within the cecum may represent medication menstruation. The appendix is normal. No bowel obstruction. Peritoneal cavity: Focal 1.1 cm rim-enhancing fluid collection in the pelvis as mentioned above. Free fluid in the adnexa as mentioned above. No free intraperitoneal gas. Lymph nodes: No enlarged lymph nodes in the abdomen or pelvis. Vasculature: Aorta and IVC patent and normal in caliber. Abdominal wall: Normal. Musculoskeletal: Normal. IMPRESSION: 1. Findings consistent with tubo-ovarian abscess most prominently involving the right ovary. Findings also suspicious for a 1.1 cm pelvic abscess. Gynecologic consultation recommended. 2. Intrauterine device in place. The report will be called/faxed according to standard departmental protocol. Electronically signed by: Glenn Cannon M.D. Assessment & Plan 37-year-old female with tubo-ovarian abscess now status post laparoscopic drainage. Has significantly elevated white count, but most likely this represents stress reaction to surgery. Patient appears to be slowly improving, we will streamline antibiotic therapy to IV ertapenem. Await follow-up WBC. Likely will require several more days of IV antibiotics. If white count remains elevated, will then need to repeat CT scan. Will follow.
[2017-11-26 20:34] VITALS: BP 110/69; PULSE 99; TEMP 36.5; O2SAT 96
[2017-11-26 20:42] VITALS: O2SAT 96
[2017-11-27 00:33] VITALS: BP 106/70; PULSE 91; TEMP 36.3; O2SAT 96
[2017-11-27 00:38] VITALS: O2SAT 96
[2017-11-27] MEDS ORDERED: GENTAMICIN INJ 240 MG in DEXTROSE 5% 100ML 100 ML IV SCH (02:00)
[2017-11-27] MEDS: IBUPROFEN 600 MG TAB PO PRN ×5 (02:01→21:08)
[2017-11-27] MEDS: OXYCODONE/ACETAMINOPHEN 5-325 TAB PO PRN ×3 (02:01→22:15)
[2017-11-27] MEDS ORDERED: NURSING VERBAL MED ORDER ONE ×2 (07:30→17:00)
--- NOTE | 2017-11-27 07:34 | Anesthesiology Progress Note ---
Anesthesia Post Op Note Date & Time Nov 27, 2017 at 07:33 Vital Signs Vital Signs Past 12 Hours Date Time Temp Pulse Resp B/P (MAP) Pulse Ox O2 Delivery O2 Flow Rate FiO2 11/27/17 00:38 96 Room Air 11/27/17 00:33 36.3 91 18 106/70 (82) 96 Room Air 11/26/17 20:42 96 Room Air 11/26/17 20:34 36.5 99 20 110/69 (83) 96 Room Air Notes Mental Status: alert / awake / arousable, participated in evaluation Pt Amnestic to Procedure: Yes Nausea / Vomiting: adequately controlled Pain: adequately controlled Airway Patency, RR, SpO2: stable & adequate BP & HR: stable & adequate Hydration State: stable & adequate Anesthetic Complications: no major complications apparent
[2017-11-27] MEDS ORDERED: MAGNESIUM HYDROXIDE SUSP 30 ML UDC PO PRN (07:45)
--- NOTE | 2017-11-27 08:04 | OPERATIVE REPORT ---
DATE OF OPERATION: 11/21/2017 PREOPERATIVE DIAGNOSES: 1. Right tubo-ovarian abscess. 2. Failed medical therapy x3 days. POSTOPERATIVE DIAGNOSIS: Same. PROCEDURES: 1. Operative laparoscopy. 2. Right salpingo-oophorectomy. 3. Right pelvic abscess drainage. 4. Lysis of adhesion. SURGEON: Guy Christensen MD. ROTOR WINDER: Delfina Neely MD ESTIMATED BLOOD LOSS: 50 mL. URINE OUTPUT: 100 mL. INTRAVENOUS FLUIDS: 2300 SPECIMENS: Right tube and ovary. DRAINS: None. ANESTHESIA: General. COMPLICATIONS: None. DISPOSITION: Stable to recovery room. DESCRIPTION OF PROCEDURE: The patient was taken to the operating room where she was prepped and draped in normal sterile fashion. Timeout was called. A Bray catheter was placed in the bladder. A weighted speculum was placed in the vagina. Aguilar retractor was used to retract the anterior part of the vagina. A single tooth tenaculum was used to grab the cervix. Uterine manipulator was placed into the uterus to help manipulate the uterus. Attention was paid to the abdominal part of the procedure where an infraumbilical incision was made and carried down to the fascia. Fascia was incised in the midline. A 5 mm guided trocar was placed in the abdomen under direct visualization. Once inside the abdomen, the trocar was re-positioned. Three more accessory ports were placed, 2 on the right and 1 on the left. These were all placed under direct visualization. Once inside the abdomen, an 8 x 7 right adnexal mass with extensive adhesions to the bowels and posterior cul-de-sac was identified. There was an adhesion of the uterus to the anterior abdominal wall, which was removed using the Harmonic scalpel. The round ligament on the right side was identified and fulgurated with the Harmonic scalpel. A plane was developed between the uterus on the right side and the abscess wall. As the dissection continued, it was ensured that the abscess was not leaking into the pelvis. Copious amount of irrigation was used to drain the abscess. The abscess wall was identified, and transection of the entire abscess performed. This involved the extensive adhesion between the bowel and the posterior cul-de-sac. Good hemostasis was obtained throughout the procedure. FloSeal was passed through the accessory port. Hemostasis improved. Copious amount of irrigation was used to irrigate the abdomen. There was good hemostasis at the end of the procedure. The abscess was placed in a bag through the 10 mm port on the left. Bag was removed. Inspection of the abdomen and pelvis showed the left adnexa was grossly normal. Further inspection of the pelvis showed good hemostasis. All instruments were removed from the abdomen. Trocars were removed, and all 5 mm incision sites were closed with 4-0 Monocryl. Attention was then paid back to the vaginal part of the procedure where the uterine manipulator was removed. There was good hemostasis. The patient is stable in recovery. I attest to the content of the Intraoperative Record and any orders documented therein. Any exception s are noted below.
[2017-11-27] MEDS: SIMETHICONE 80 MG CHEW PO SCH ×4 (09:13→21:08)
[2017-11-27] MEDS: DOCUSATE SODIUM 100 MG CAP PO SCH ×2 (09:13→21:08)
[2017-11-27 09:15] VITALS: BP 111/78; PULSE 108; TEMP 37; O2SAT 97
--- NOTE | 2017-11-27 11:27 | Surgery Progress Note ---
Surgery Progress Note Date of Service Nov 27, 2017. Subjective Post OP Day: 3 + feeling well, + ambulating, + flatus, + pain controlled, + using [employer], + diet ( PO food and meds), No complaints, No chest pain, No SOB, No bowel movement, No nausea, No vomiting Objective Vital Signs: Date Time Temp Pulse Resp B/P (MAP) Pulse Ox O2 Delivery O2 Flow Rate FiO2 11/27/17 09:15 37.0 108 18 111/78 (89) 97 Room Air 11/27/17 09:15 97 Room Air 11/27/17 00:38 96 Room Air 11/27/17 00:33 36.3 91 18 106/70 (82) 96 Room Air 11/26/17 20:42 96 Room Air 11/26/17 20:34 36.5 99 20 110/69 (83) 96 Room Air 11/26/17 15:15 37.4 109 20 114/67 (83) 97 Room Air 11/26/17 15:15 97 Room Air General Appearance: WD/WN, no apparent distress Head: normocephalic, atraumatic Neck: supple, no adenopathy, thyroid normal, no JVD, no carotid bruits, trachea midline Respiratory/Chest: chest non-tender, lungs clear, normal breath sounds, no respiratory distress, no accessory muscle use Cardiovascular: regular rate, rhythm, no edema, no gallop, no JVD, no murmur Abdomen: normal bowel sounds, non tender, non distended, soft, no organomegaly , no pulsatile mass Incision(s): clean, dry, intact, no erythema, no drainage Extremities: normal range of motion, non-tender, normal inspection, no pedal edema, no calf tenderness, normal capillary refill, pelvis stable Laboratory Results: Results Past 24 Hours Test 11/27/17 10:56 Range/Units Assessment & Plan Pt doing well TOA, failed medical therapy s/p laparoscopic RSO with adhesiolysis pt has been afebrile since surgery but continues to have elevated WBC ID on consult- Pt on Invanz 1gm QD ID monitoring WBC will d/c home pending ID recommendation
[2017-11-27] MEDS ORDERED: BISACODYL 10 MG SUPP PR PRN (11:30)
[2017-11-27 11:42] LABS: HEMATOCRIT 35.6 % (37-47); HEMOGLOBIN 11.9 g/dL (12.0-16.0); MEAN CORPUSCULAR HEMOGLOBIN 30.7 pg (25-34); MEAN CORPUSCULAR HGB CONC 33.4 g/dl (32-36); MEAN PLATELET VOLUME 8.4 fL (7.4-10.4); PLATELET COUNT 518 K/uL (130-400); RED CELL DISTRIBUTION WIDTH CV 13.7 % (11.5-14.5); RED CELL DISTRIBUTION WIDTH SD 46.1 fL (36.4-46.3); WHITE BLOOD COUNT 25.57 K/uL (4.8-10.8)
[2017-11-27 12:04] LABS: BASO % 0.4 %; EOS % 1.5 %; EOS ABS # 0.39 K/uL (0-0.5); IG# 0.81 K/uL (0.00-0.02); LYMPH % 6.9 %; LYMPH ABS # 1.77 K/uL (1.2-3.4); MONO % 4.8 %; MONO ABS # 1.24 K/uL (0.11-0.59); NEUT % 83.2 %; NEUT ABS # 21.26 K/uL (1.4-6.5)
[2017-11-27] MEDS: ONDANSETRON INJ 2 MG/ML 2 ML VIAL IV PRN (13:30)
[2017-11-27] MEDS: ERTAPENEM IV 1 GM in SODIUM CHLOR 0.9% AD-VAN 50ML 50 ML IV SCH (13:43)
--- NOTE | 2017-11-27 16:01 | Infectious Disease Progress Nt ---
Progress Note Date of Service Nov 27, 2017. Subjective Pt evaluation today including: conversation w/ patient, physical exam, chart review, lab review, review of studies, conversation w/ regulatory services consultant, review of inpatient medication list Patient feeling better today. Abdominal pain improving. Passing gas. No bowel movement as of yet. Remains afebrile. White count down to 25,000. All Other Systems: Reviewed and Negative Medications Current Inpatient Medications Medications (Trade) Dose Ordered Sig/Yudy Route Start Time Stop Time Status Last Admin Dose Admin Acetaminophen (Tylenol Tab) 650 mg Q4H PRN PO 11/21/17 14:00 12/21/17 13:59 11/21/17 15:29 650 MG Ondansetron HCl (Zofran Inj) 4 mg Q6H PRN IV 11/21/17 14:00 12/21/17 13:59 11/27/17 13:30 4 MG Oxycodone/ Acetaminophen (Percocet 5-325mg Tab) 1 tab Q4H PRN PO 11/21/17 18:15 12/05/17 18:14 11/27/17 02:01 1 TAB Oxycodone/ Acetaminophen (Percocet 5-325mg Tab) 2 tab Q4H PRN PO 11/22/17 13:00 12/06/17 12:59 11/27/17 09:14 2 TAB Calcium Carbonate (Tums Chew Tab) 500 mg Q2HWA PRN PO 11/22/17 13:00 12/22/17 12:59 11/26/17 11:48 500 MG Chlorpromazine HCl (Thorazine Tab) 25 mg Q4 PRN PO 11/22/17 17:45 12/22/17 17:44 11/22/17 19:15 25 MG Docusate Sodium (coLACE CAP) 100 mg BID PO 11/23/17 09:00 12/23/17 08:59 11/27/17 09:13 100 MG Ibuprofen (Motrin Tab) 600 mg QID PRN PO 11/23/17 16:15 12/23/17 16:14 11/27/17 12:47 600 MG Lactated Ringer's 1,000 ml @ 125 mls/hr Q8H IV 11/24/17 18:57 12/24/17 18:56 Promethazine HCl 12.5 mg/Sodium Chloride 50.5 ml @ 200 mls/hr Q4H PRN IV 11/24/17 19:00 12/24/17 18:59 Promethazine HCl 25 mg/Sodium Chloride 51 ml @ 200 mls/hr Q4H PRN IV 11/24/17 19:00 12/24/17 18:59 Ertapenem 1 gm/ Sodium Chloride 50 ml @ 120 mls/hr DAILY@1400 IV 11/26/17 15:00 12/06/17 13:59 11/27/17 13:43 120 MLS/HR Simethicone (Mylicon Chew Tab) 80 mg QID PO 11/27/17 09:00 12/27/17 08:59 11/27/17 12:46 80 MG Magnesium Hydroxide (Milk Of Magnesia Susp) 30 ml DAILY PRN PO 11/27/17 07:45 12/27/17 07:44 Bisacodyl (Dulcolax Supp) 10 mg ONE PRN WA 11/27/17 11:30 12/27/17 11:29 Objective Vital Signs Date Time Temp Pulse Resp B/P (MAP) Pulse Ox O2 Delivery O2 Flow Rate FiO2 11/27/17 09:15 37.0 108 18 111/78 (89) 97 Room Air 11/27/17 09:15 97 Room Air 11/27/17 00:38 96 Room Air 11/27/17 00:33 36.3 91 18 106/70 (82) 96 Room Air 11/26/17 20:42 96 Room Air 11/26/17 20:34 36.5 99 20 110/69 (83) 96 Room Air Physical Exam General Appearance: WD/WN, no apparent distress Eyes: normal inspection, EOMI, sclerae normal ENT: normal ENT inspection, pharynx normal Neck: supple, no adenopathy, thyroid normal, trachea midline Respiratory/Chest: chest non-tender, lungs clear, normal breath sounds, no respiratory distress Cardiovascular: regular rate, rhythm, no gallop, no murmur Abdomen: normal bowel sounds, non tender, soft, no organomegaly Extremities: non-tender, normal inspection, normal capillary refill Neurologic/Psychiatric: alert, normal mood/affect, oriented x 3 Skin: normal color, warm/dry, no rash Lymphatic: no adenopathy Laboratory Results RUN DATE: 11/27/17 [facility] LAB PAGE 1 RUN TIME: 1049 Specimen Inquiry PATIENT: SANJU JACQUES LOC: [id number] U # : [id number] AGE/SX: 37/F ROOM: [facility] REG : 11/21/[address]: Abhishek Su DO : 1980 BED: 2 DIS : STATUS: ADM IN TLOC: SPEC #: [id number] LEODAN: 11/26/17-1034 STATUS: RES REQ #: [id number] RECD: 11/26/[address]: Tuan Harman M.D. SOURCE: LORRAINE ULRICH ENTR: 11/26/17-[address]: Vitaliy Meade MD SPDC: Abhishek Su DO Hays, Amy L., M.D. ORDERED: CULTURE URCLEAN Procedure Result Verified Site URINE CULTURE Preliminary 11/27/17-1049 NO GROWTH - LESS THAN 1,000 COLONIES/ML, Final Report to Follow. Last 24 Hours Test 11/27/17 11:27 White Blood Count 25.57 K/uL Red Blood Count 3.87 M/uL Hemoglobin 11.9 g/dL Hematocrit 35.6 % Mean Corpuscular Volume 92.0 fL Mean Corpuscular Hemoglobin 30.7 pg Mean Corpuscular Hemoglobin Concent 33.4 g/dl Platelet Count 518 K/uL Mean Platelet Volume 8.4 fL Neutrophils (%) (Auto) 83.2 % Lymphocytes (%) (Auto) 6.9 % Monocytes (%) (Auto) 4.8 % Eosinophils (%) (Auto) 1.5 % Basophils (%) (Auto) 0.4 % Neutrophils # (Auto) 21.26 K/uL Lymphocytes # (Auto) 1.77 K/uL Monocytes # (Auto) 1.24 K/uL Eosinophils # (Auto) 0.39 K/uL Basophils # (Auto) 0.10 K/uL RDW Standard Deviation 46.1 fL RDW Coefficient of Variation 13.7 % Immature Granulocyte % (Auto) 3.2 % Immature Granulocyte # (Auto) 0.81 K/uL Toxic Vacuolation 1+ Dohle Bodies 1+ Assessment and Plan (1) Tubo-ovarian abscess Status: Acute Hospital day # 2 Tuboovarian abscess/pelvic abscess -WBC down to 23 this morning -Last febrile at 4 AM this morning -Colace 100 mg BID -Repeat CBC this evening. -Potassium up to 3.7 this morning, will stop potassium -Continue antibiotics as ordered 37-year-old female with tubo-ovarian abscess now status post laparoscopic drainage with elevated postoperative white blood cell count, now improving. Patient should continue on IV ertapenem another 4- 5 days. Will continue to follow.
[2017-11-27 16:08] VITALS: BP 110/71; PULSE 100; TEMP 36.7; O2SAT 99
[2017-11-27 20:05] VITALS: BP 130/81; PULSE 110; TEMP 37.1; O2SAT 97
[2017-11-27] MEDS: CALCIUM CARBONATE 500 MG CHEWABLE PO PRN (22:15)
[2017-11-27 23:30] VITALS: BP 109/71; PULSE 96; TEMP 37.4; O2SAT 94
[2017-11-28 03:15] VITALS: BP 104/70; PULSE 93; TEMP 36.8; O2SAT 96
[2017-11-28] MEDS: IBUPROFEN 600 MG TAB PO PRN ×2 (03:26→07:47)
[2017-11-28 07:26] LABS: HEMATOCRIT 30.7 % (37-47); HEMOGLOBIN 10.2 g/dL (12.0-16.0); MEAN CELL VOLUME 90.3 fL (80-100); MEAN CORPUSCULAR HGB CONC 33.2 g/dl (32-36); MEAN PLATELET VOLUME 8.4 fL (7.4-10.4); PLATELET COUNT 459 K/uL (130-400); RED CELL DISTRIBUTION WIDTH CV 13.6 % (11.5-14.5); WHITE BLOOD COUNT 18.18 K/uL (4.8-10.8)
[2017-11-28 07:30] VITALS: BP 103/71; PULSE 88; TEMP 36.8; O2SAT 96
[2017-11-28 07:59] LABS: BASO % 0.3 %; BASO ABS # 0.05 K/uL (0-0.2); EOS % 2.4 %; EOS ABS # 0.43 K/uL (0-0.5); IG# 0.56 K/uL (0.00-0.02); LYMPH % 15.1 %; LYMPH ABS # 2.75 K/uL (1.2-3.4); MONO % 8.1 %; MONO ABS # 1.47 K/uL (0.11-0.59); NEUT ABS # 12.92 K/uL (1.4-6.5)
[2017-11-28] MEDS: DOCUSATE SODIUM 100 MG CAP PO SCH (08:48)
[2017-11-28] MEDS: SIMETHICONE 80 MG CHEW PO SCH ×2 (08:49→13:00)
--- NOTE | 2017-11-28 09:44 | Surgery Progress Note ---
Surgery Progress Note Date of Service Nov 28, 2017. Subjective Post OP Day: 4 + feeling well, + ambulating, + bowel movement, + pain controlled Objective Vital Signs: Date Time Temp Pulse Resp B/P (MAP) Pulse Ox O2 Delivery O2 Flow Rate FiO2 11/28/17 07:30 36.8 88 16 103/71 (82) 96 Room Air 11/28/17 07:30 96 Room Air 11/28/17 03:15 36.8 93 18 104/70 (81) 96 Room Air 11/27/17 23:30 94 Room Air 11/27/17 23:30 37.4 96 18 109/71 (84) 94 Room Air 11/27/17 20:05 37.1 110 20 130/81 (97) 97 Room Air 11/27/17 16:08 36.7 100 20 110/71 (84) 99 Room Air 11/27/17 16:08 99 Room Air General Appearance: no apparent distress Abdomen: non tender, non distended, soft Incision(s): clean, dry, intact Extremities: non-tender, normal inspection, no pedal edema, no calf tenderness Laboratory Results: Results Past 24 Hours Test 11/27/17 11:27 11/28/17 06:56 Range/Units White Blood Count 25.57 18.18 4.8-10.8 K/uL Red Blood Count 3.87 3.40 4.2-5.4 M/uL Hemoglobin 11.9 10.2 12.0-16.0 g/dL Hematocrit 35.6 30.7 37-47 % Mean Corpuscular Volume 92.0 90.3 80-100 fL Mean Corpuscular Hemoglobin 30.7 30.0 25-34 pg Mean Corpuscular Hemoglobin Concent 33.4 33.2 32-36 g/dl Platelet Count 518 459 130-400 K/uL Mean Platelet Volume 8.4 8.4 7.4-10.4 fL Neutrophils (%) (Auto) 83.2 71.0 % Lymphocytes (%) (Auto) 6.9 15.1 % Monocytes (%) (Auto) 4.8 8.1 % Eosinophils (%) (Auto) 1.5 2.4 % Basophils (%) (Auto) 0.4 0.3 % Neutrophils # (Auto) 21.26 12.92 1.4-6.5 K/uL Lymphocytes # (Auto) 1.77 2.75 1.2-3.4 K/uL Monocytes # (Auto) 1.24 1.47 0.11-0.59 K/uL Eosinophils # (Auto) 0.39 0.43 0-0.5 K/uL Basophils # (Auto) 0.10 0.05 0-0.2 K/uL RDW Standard Deviation 46.1 45.0 36.4-46.3 fL RDW Coefficient of Variation 13.7 13.6 11.5-14.5 % Immature Granulocyte % (Auto) 3.2 3.1 % Immature Granulocyte # (Auto) 0.81 0.56 0.00-0.02 K/uL Toxic Vacuolation 1+ Dohle Bodies 1+ Assessment & Plan pelvic abscess s/p Drainage and RSO of abscess ID consult regular diet pelvic abscess s/p Drainage and RSO of abscess Continue IV abx as ordered by ID
--- NOTE | 2017-11-28 10:33 | Infectious Disease Progress Nt ---
Progress Note Date of Service Nov 28, 2017. Subjective Pt evaluation today including: conversation w/ patient, physical exam, chart review, lab review, review of studies, conversation w/ [facility] consultant, review of inpatient medication list Feeling much better. Afebrile, [place] [id number] All Other Systems: Reviewed and Negative Medications Current Inpatient Medications Medications (Trade) Dose Ordered Sig/Yudy Route Start Time Stop Time Status Last Admin Dose Admin Acetaminophen (Tylenol Tab) 650 mg Q4H PRN PO 11/21/17 14:00 12/21/17 13:59 11/21/17 15:29 650 MG Ondansetron HCl (Zofran Inj) 4 mg Q6H PRN IV 11/21/17 14:00 12/21/17 13:59 11/27/17 13:30 4 MG Oxycodone/ Acetaminophen (Percocet 5-325mg Tab) 1 tab Q4H PRN PO 11/21/17 18:15 12/05/17 18:14 11/27/17 22:15 1 TAB Oxycodone/ Acetaminophen (Percocet 5-325mg Tab) 2 tab Q4H PRN PO 11/22/17 13:00 12/06/17 12:59 11/27/17 09:14 2 TAB Calcium Carbonate (Tums Chew Tab) 500 mg Q2HWA PRN PO 11/22/17 13:00 12/22/17 12:59 11/27/17 22:15 500 MG Chlorpromazine HCl (Thorazine Tab) 25 mg Q4 PRN PO 11/22/17 17:45 12/22/17 17:44 11/22/17 19:15 25 MG Docusate Sodium (coLACE CAP) 100 mg BID PO 11/23/17 09:00 12/23/17 08:59 11/28/17 08:48 100 MG Lactated Ringer's 1,000 ml @ 125 mls/hr Q8H IV 11/24/17 18:57 12/24/17 18:56 Promethazine HCl 12.5 mg/Sodium Chloride 50.5 ml @ 200 mls/hr Q4H PRN IV 11/24/17 19:00 12/24/17 18:59 Promethazine HCl 25 mg/Sodium Chloride 51 ml @ 200 mls/hr Q4H PRN IV 11/24/17 19:00 12/24/17 18:59 Ertapenem 1 gm/ Sodium Chloride 50 ml @ 120 mls/hr DAILY@1400 IV 11/26/17 15:00 12/06/17 13:59 11/27/17 13:43 120 MLS/HR Simethicone (Mylicon Chew Tab) 80 mg QID PO 11/27/17 09:00 12/27/17 08:59 11/28/17 08:49 80 MG Magnesium Hydroxide (Milk Of Magnesia Susp) 30 ml DAILY PRN PO 11/27/17 07:45 12/27/17 07:44 11/27/17 16:45 30 ML Bisacodyl (Dulcolax Supp) 10 mg ONE PRN PA 11/27/17 11:30 12/27/17 11:29 Ibuprofen (Motrin Tab) 600 mg Q4H PRN PO 11/27/17 17:15 12/27/17 17:14 11/28/17 07:47 600 MG Objective Vital Signs Date Time Temp Pulse Resp B/P (MAP) Pulse Ox O2 Delivery O2 Flow Rate FiO2 11/28/17 07:30 36.8 88 16 103/71 (82) 96 Room Air 11/28/17 07:30 96 Room Air 11/28/17 03:15 36.8 93 18 104/70 (81) 96 Room Air 11/27/17 23:30 94 Room Air 11/27/17 23:30 37.4 96 18 109/71 (84) 94 Room Air 11/27/17 20:05 37.1 110 20 130/81 (97) 97 Room Air 11/27/17 16:08 36.7 100 20 110/71 (84) 99 Room Air 11/27/17 16:08 99 Room Air Physical Exam General Appearance: WD/WN, no apparent distress Eyes: normal inspection, EOMI, sclerae normal ENT: normal ENT inspection, pharynx normal Neck: supple, no adenopathy, thyroid normal, trachea midline Respiratory/Chest: chest non-tender, lungs clear, normal breath sounds, no respiratory distress Cardiovascular: regular rate, rhythm, no gallop, no murmur Abdomen: normal bowel sounds, soft, no organomegaly, + tenderness Extremities: non-tender, no calf tenderness Neurologic/Psychiatric: alert, oriented x 3 Skin: normal color, warm/dry, no rash Laboratory Results Last 24 Hours Test 11/27/17 11:27 11/28/17 06:56 White Blood Count 25.57 K/uL 18.18 K/uL Red Blood Count 3.87 M/uL 3.40 M/uL Hemoglobin 11.9 g/dL 10.2 g/dL Hematocrit 35.6 % 30.7 % Mean Corpuscular Volume 92.0 fL 90.3 fL Mean Corpuscular Hemoglobin 30.7 pg 30.0 pg Mean Corpuscular Hemoglobin Concent 33.4 g/dl 33.2 g/dl Platelet Count 518 K/uL 459 K/uL Mean Platelet Volume 8.4 fL 8.4 fL Neutrophils (%) (Auto) 83.2 % 71.0 % Lymphocytes (%) (Auto) 6.9 % 15.1 % Monocytes (%) (Auto) 4.8 % 8.1 % Eosinophils (%) (Auto) 1.5 % 2.4 % Basophils (%) (Auto) 0.4 % 0.3 % Neutrophils # (Auto) 21.26 K/uL 12.92 K/uL Lymphocytes # (Auto) 1.77 K/uL 2.75 K/uL Monocytes # (Auto) 1.24 K/uL 1.47 K/uL Eosinophils # (Auto) 0.39 K/uL 0.43 K/uL Basophils # (Auto) 0.10 K/uL 0.05 K/uL RDW Standard Deviation 46.1 fL 45.0 fL RDW Coefficient of Variation 13.7 % 13.6 % Immature Granulocyte % (Auto) 3.2 % 3.1 % Immature Granulocyte # (Auto) 0.81 K/uL 0.56 K/uL Toxic Vacuolation 1+ Dohle Bodies 1+ Assessment and Plan (1) Tubo-ovarian abscess Status: Acute 37-year-old female with tubo-ovarian abscess now status post laparoscopic drainage with elevated postoperative white blood cell count, now improving. Patient should continue on IV ertapenem another 5 days. Will arrange outpatient Rx.
[2017-11-28] MEDS: ERTAPENEM IV 1 GM in SODIUM CHLOR 0.9% AD-VAN 50ML 50 ML IV SCH (14:22)
[2017-11-28] MEDS: OXYCODONE/ACETAMINOPHEN 5-325 TAB PO PRN (14:24)
[2017-11-28] MEDS ORDERED: OXYC-57 PO (14:34)
[2017-11-28] MEDS ORDERED: ONDA4TAB10 SL (14:34)
[2017-11-28] MEDS ORDERED: MTR600X PO (14:34)
--- NOTE | 2017-11-28 14:36 | Discharge Instructions ---
Discharge Instructions Date of Service Nov 28, 2017. Admission Reason for Admission: Tubo-Ovarian Abscess Discharge Discharge Diagnosis / Problem: TOA Discharge Goals Goal(s): Routine recovery after surgery Activity Recommendations Activity Limitations: as noted below Lifting Limitations: no more than 10 pounds Exercise/Sports Limitations: gradually increase as tolerated May Resume Sexual Activity: after follow-up appointment Shower/Bathe: no limitations Driving or Machine Use: resume 3 days after discharge . Instructions / Follow-Up Instructions / Follow-Up ACTIVITY RECOMMENDATIONS: * Avoid tampons, douching, hot tubs, pools, and intercourse until bleeding has stopped. * May shower as usual. * No strenuous activity for 24-48 hours. After 24-48 hours, you can do anything you feel like doing (driving and sports are okay). RETURN TO SCHOOL/WORK: * You may return to school or work after 24 hours unless specified by your physician. DIET: * Resume previous diet. MEDICATIONS: Resume previous medications unless instructed otherwise by your surgeon. Ibuprofen 200mg 2-3 tablets every 4-6 hours as needed --OR-- Aleve 2 tablets every 8-12 hours as needed for post-operative discomfort Medications are over the counter. Tylenol may be used if above medications are contraindicated or not preferred. Medication should be taken with food or milk. do not take on an empty stomach. SPECIAL CARE INSTRUCTIONS: * Check temperature twice daily for one week. Report any elevation over 101 degrees. * Call office if you experience increased pelvic pain or discomfort not relieved by pain medicine, if you have foul smelling vaginal discharge, if you have bleeding that is heavier than a normal menstrual flow. If you are changing a maxi pad every 1- 2 hours, this is too heavy. vaginal spotting is normal for 1-2 weeks. FOLLOW UP VISIT: Call your doctor's office for a post-operative visit. Current Hospital Diet Patient's current hospital diet: Regular Diet Discharge Diet Recommended Diet: Regular Diet Fluid Restriction: None Procedures Procedures Performed: Operative laparoscopic, right salpingo-oohorectomy, lysis of adhesions Pending Studies Studies pending at discharge: no Medical Emergencies . Who to Call and When: Medical Emergencies: If at any time you feel your situation is an emergency, please call 911 immediately. . Non-Emergent Contact Non-Emergency issues call your: Primary Care Provider . . "Provider Documentation" section prepared by Tuan Harman. .
[2017-11-28 14:45] VITALS: BP 103/71; PULSE 88; TEMP 36.8; O2SAT 96
[2017-11-28] MEDS: ONDANSETRON INJ 2 MG/ML 2 ML VIAL IV PRN (14:51)
--- NOTE | 2017-12-03 23:27 | DISCHARGE SUMMARY ---
CHIEF COMPLAINT: Abdominal and pelvic pain. HISTORY OF PRESENT ILLNESS: This is a 37-year-old G2, P2 who was admitted through the ER on 11/21/2017. She was seen in the ER with abdominal and pelvic pain as well as nausea and vomiting. The patient had had pain for about 3 weeks and was progressively getting worse. She had been seen in urgent care the day before and treated for what was thought to be a UTI. In the ER, she had a low grade fever. She had an IUD that was placed 8 years ago and was removed. CT scan showed a right-sided tubo-ovarian abscess. The patient was admitted and started on antibiotics. She received antibiotics from 11/21/2017 to 11/23/2017, continued to have breakthrough fevers. White count was elevated at that time. On 11/24/2017, after 48 hours of antibiotics with no improvement, decision was therefore made to take the patient to the operating room and perform operative laparoscopy. Details of the surgery are in the operative note. Right salpingo-oophorectomy with abscess drainage and peritoneal irrigation was performed. The patient did well on postop day 1, 11/25/2017. She continued to improve. She, however, had persistent elevated white count. Infectious disease was consulted and the patient was placed on antibiotics. Her white count gradually improved and was discharged home in stable condition on 11/28/2017. PAST MEDICAL HISTORY: None prior to this tubo-ovarian abscess. PAST SOCIAL HISTORY: The patient was a smoker. Denied drug and alcohol use. ALLERGIES: The patient denied any known drug allergies. SURGICAL HISTORY: None. REVIEW OF SYSTEMS: Negative except as dictated in the HPI. LABS: On 11/28/2017 showed WBC of 18.8, hemoglobin of 10.2, hematocrit of 30.7. PHYSICAL EXAMINATION: VITAL SIGNS: On 11/28/2017 showed temperature of 36.8, pulse of 88, respirations of 16, blood pressure of 103/71. HEART: S1, S2, regular rhythm and rate. LUNGS: Clear to auscultation bilaterally. ABDOMEN: Nontender, nondistended. Incisions at time of discharge looked clean, dry, and intact. Abdominal exam showed positive bowel sounds, no guarding, no rebound. EXTREMITIES: No cyanosis, clubbing, edema. CONDITION ON DISCHARGE: Stable. OPERATION: Operative laparoscopy, right salpingo-oophorectomy. DISCHARGE DIAGNOSIS: Postop after right salpingo-oophorectomy. PLAN ON DISCHARGE: The patient was discharged home in stable condition with instructions regarding activity, diet, followup appointment and medication.
== END 2017-11-28 16:57 | disposition home health service (06) | DRG 743 ==
LOC: C.EDB 10:46 → MERGE 10:46 → C.MS4N 14:00 → ENRESERV 14:42
PROVIDERS: ADMIT Obstetrics & Gynecology; ATTEND Obstetrics & Gynecology
PROC: 0UPD7HZ Removal of Contraceptive Device from Uterus and Cervix, Via Natural or Artificial Opening (ICD-10-PCS; 2017-11-21)
PROC: 0UT54ZZ Resection of Right Fallopian Tube, Percutaneous Endoscopic Approach (ICD-10-PCS; principal; 2017-11-24 15:00)
PROC: 0UT04ZZ Resection of Right Ovary, Percutaneous Endoscopic Approach (ICD-10-PCS; principal; 2017-11-24 15:00)
DX: N70.92 Oophoritis, unspecified (principal); F17.200 Nicotine dependence, unspecified, uncomplicated; Z79.899 Other long term (current) drug therapy